=== PATIENT | male | born 1950 | race Caucasian/White ===

== ENCOUNTER 2021-09-15 14:47 | Outpatient (CLI) | payer MEDICARE, SELFPAY | END 2021-09-15 23:59 | disposition home or self-care (01) | PROVIDERS: Referring Provider Family Medicine; Visit Provider Family Medicine | DX: R31.9 Hematuria, unspecified (principal) | CPT/HCPCS: 87086 ==

== ENCOUNTER 2025-06-19 20:30 | Inpatient (IN) | payer MEDICARE, SELFPAY ==
[2025-06-19 20:30] VITALS: BP 200/89; PULSE 88; RESP 18; TEMP 36.8; O2SAT 99; BMI 33.5
--- NOTE | 2025-06-19 20:47 | EKG12_ITS ---
Test Reason : CP Blood Pressure : */* mmHG Vent. Rate : 92 BPM Atrial Rate : 92 BPM P-R Int : 176 ms QRS Dur : 78 ms QT Int : 376 ms P-R-T Axes : 82 69 109 degrees QTcB Int : 464 ms Normal sinus rhythm Marked ST abnormality, possible anterolateral subendocardial injury Abnormal ECG Confirmed by Nick Paige ([id number]), editor index ANAT MURCIA ([id number]) on 06/20/2025 10:35:47 AM Referred By: ER Confirmed By: Nick Paige
--- NOTE | 2025-06-19 20:47 | EDS_ITS ---
HPI History of Present Illness Chief Complaint: Chest Pain Detail of Chief Complaint: Chest pain Informant: patient Narrative Narrative: Patient presents with chest pain intermittently for at least a week. It can last up to 30 minutes at a time. At times he will have discomfort into his arms and biceps and forearms. Pain also will radiate through to his back. He feels somewhat short of breath with it. Does not necessarily seem to be brought on by exertion. He had recent travel to [place] earlier in the month by vehicle which was about 8 hours. No history of PE or DVT. No prior cardiac history. He does have history of hypertension but is on an herbal medicine. [facility] Medical History (Updated 06/19/25 @ 22:[address] Giovanny Ventura, DO) Hypertension Macular degeneration Home Medications Medication Instructions Recorded Last Taken Type aspirin 81 mg capsule 81 mg PO DAILY 06/19/25 Unkn own History Allergy/AdvReac Type Severity Reaction Status Date / Time No Known Allergies Allergy Verified 06/19/25 20:33 Family History no significant family his Surgical History (Updated 06/19/25 @ 20:48 by Saul Etienne) Hx of tonsillectomy Hx of appendectomy ROS ROS ED Review of Systems ROS Unobtainable: other Constitutional Constitutional ED: Reports lethargy; Denies chills, fever(s), sweats or weight loss Eyes Eyes: Denies blurry vision, change in vision or diplopia ENT ENT ED: Denies rhinorrhea or sore throat Cardiovascular Cardiovascular: Reports chest pain; Denies orthopnea or racing heartbeat Respiratory/Chest Respiratory/Chest: Denies cough, dyspnea, dyspnea on exertion, orthopnea or sputum Gastrointestinal Gastrointestinal: Denies abdominal pain, diarrhea, nausea or vomiting Genitourinary Genitourinary ED: Denies dysuria, hematuria or urinary frequency Musculoskeletal Musculoskeletal: Denies arthralgias, back pain, myalgias or neck pain Integumentary Denies abscess, Abrasions or rash Neurologic Neurologic: Denies headache(s) or weakness Psychiatric Psychiatric: Denies anxiety, depression or suicidal thoughts Endocrine Endocrinology: Denies polydipsia, polyphagia or polyuria Hematologic/Lymphatic Hematologic/Lymphatic: Denies easy bleeding, easy bruising or lymphadenopathy Allergic/Immunologic Allergic/Immunologic ED: Denies mouth swelling, tongue swelling or urticaria EXAM Physical Exam Const Vital Signs: 06/19/25 20:30 06/19/25 20:47 06/19/25 20:50 Temperature 98.2 F Temperature Source Oral Pulse Rate 88 Respiratory Rate 18 Respiratory Effort Normal Blood Pressure 200/89 H Blood Pressure Mean 126 Pulse Ox 99 Oxygen Delivery Method Room Air Room Air 06/19/25 20:58 06/19/25 21:30 Temperature Temperature Source Pulse Rate 82 71 Respiratory Rate 16 Respiratory Effort Blood Pressure 176/97 H 159/86 H Blood Pressure Mean 110 Pulse Ox 96 Oxygen Delivery Method Room Air Positive well nourished and well developed General Appearance ED: well developed and NAD HEENT Reports TM's clear and moist mucous membranes normocephalic and atraumatic; Negative for trauma or tenderness Tympanic Membrane ED: Yes TM's clear Eyes PERRL and EOMs intact bilaterally General Eye ED: Negative for pale conjunctiva or scleral icterus Neck no lymphadenopathy, supple and no JVD General: Negative for tenderness Chest Wall inspection of chest normal and palpation of chest normal Chest: Negative for tenderness Resp normal respiratory effort and clear to auscultation bilaterally Effort and Inspection: Negative for respiratory distress or pain with movement Auscultation: Negative for rhonchi, wheezes or diminished lung sounds Cardio regular rate, regular rhythm, S1 normal heart sound, S2 normal heart sound and no murmurs Peripheral Pulses: pulses 2+ throughout GI normal to inspection, nondistended, normoactive bowel sounds, soft to palpation, non-tender, non-distended and no masses Back/Spine no CVA tenderness and no thoracic nor lumbar tenderness Extremity normal to inspection General Extremety ED: Negative for edema General Extremity: Negative for edema Neuro oriented x3, CN's II-XII intact bilaterally, no sensory deficits noted and gait normal Sensorium / Orientation: awake, alert, oriented to person, oriented to place and oriented to time Motor Exam: strength 5/5 throughout and strength abnormal Psych mental status grossly normal Skin no rashes or lesions noted and no wounds MDM MDM MDM Narrative Medical decision making narrative: Patient presents with chest pain ongoing for at least a week or 2. Pain radiates to the back and into the arms at times. Minimal discomfort at this time. EKG obtained arrival showed diffuse ST depression from V2 down to V6 in 1 and aVL. When compared with EKG from 20 years ago this looks very different. Patient received aspirin. CBC with differential obtained showed a white count of 8.6 with hemoglobin 15 and platelet count of 243. Chemistries were unremarkable. BUN was 14 and creatinine 1.55. Troponin came back elevated 139. Patient was started on a heparin drip. 1 view chest x-ray obtained showed no acute disease process. Discussed case with windows laptop technician Dr. Paige who is on- call. Will discuss with hospitalist to evaluate patient for admission. Patient did come in quite hypertensive initially with systolic over 200 but states he has chronic history of whitecoat syndrome and typically at home his blood pressures in the 150s and 140s. After Nitropaste to the chest wall patient's blood pressure 159/86 Lab Data Attestation: I reviewed the patient's lab results. Labs: Laboratory Results - last 24 hr 06/19/25 20:53 WBC 8.6 RBC 5.21 Hgb 15.1 Hct 44.5 MCV 85.4 MCH 29.0 MCHC 33.9 RDW Std Deviation 42.0 RDW Coeff of Mercy 13.5 Plt Count 243 MPV 10.1 Immature Gran % (Auto) 0.300 Neut % (Auto) 54.0 Lymph % (Auto) 35.5 Starr % (Auto) 7.4 Eos % (Auto) 2.1 Baso % (Auto) 0.7 Absolute Neuts (auto) 4.7 Absolute Lymphs (auto) 3.07 Nucleated RBC % 0 Sodium 139 Potassium 4.0 Chloride 104 Carbon Dioxide 23.4 Anion Gap 12 BUN 14 Creatinine 1.55 H Estim Creat Clear Calc 47.82 L Est GFR (MDRD) Non-Af 47 L BUN/Creatinine Ratio 9.0 L Glucose 117 H Calcium 9.5 Troponin T High Sens 139 H* Radiography Diagnostic Testing: Clinical Impression(s) from Imaging Studies Chest X-Ray 06/19/25 21:09 IMPRESSION: No focal consolidation. Mild pulmonary vascular congestion. Bilateral lower thoracic rib fractures not excluded. Reading Location: [facility] EKG Initial EKG: Attestation: I personally reviewed and interpreted this EKG as follows: Comments: Sinus rhythm with rate of [address] depression anterior laterally. Prior EKG tracings: available for review Prior: Changed Discharge Plan Dx/Rx/DC Orders Clinical Impression: Non-ST elevation [place] (NSTEMI), Elevated troponin, Hypertension Disposition Disposition: Acute Care Hospital [facility]
[2025-06-19] MEDS: 0.9% Normal Saline (1000mL) 1,000 ML 150 ML IV (20:55)
[2025-06-19 20:58] VITALS: BP 176/97; PULSE 82
[2025-06-19] MEDS: Nitroglycerin Oint 1 INCH PACKET TD (20:58)
[2025-06-19 21:08] LABS: Hematocrit 44.5 % (40-54); Hemoglobin 15.1 g/dL (13.0-16.5); Immature Granulocytes Count 0.030 X10^3/uL (0.0-0.0); Mean Corp Hgb Conc 33.9 g/dL (32-36); Mean Corpuscular Volume 85.4 fL (80-94); Mean Platelet Vol. 10.1 fl (6.2-12.0); NRBC Flagged by Analyzer 0 % (0-5); Platelet Count 243 K/mm3 (150-450); RBC Distribution Width CV 13.5 % (11.6-14.6); RBC Distribution Width SD 42.0 fl (35.1-43.9); Red Blood Count 5.21 M/mm3 (4.6-6.2); White Blood Count 8.6 K/mm3 (4.4-11.0)
--- NOTE | 2025-06-19 21:09 | RAD_ITS ---
PROCEDURE: CHEST 1 VIEW (PORTABLE) 06/19/2025 REASON FOR EXAM: CHEST PAIN TECHNIQUE: Frontal view of the chest. COMPARISON: none FINDINGS: No focal consolidation. Mild pulmonary vascular congestion. No pleural effusion or pneumothorax. Cardiac silhouette is within normal limits. Bilateral lower thoracic rib fractures not excluded. RAD/Chest 1 View (Portable) IMPRESSION: No focal consolidation. Mild pulmonary vascular congestion. Bilateral lower thoracic rib fractures not excluded. Reading Location: [facility]
--- OUTSIDE RECORDS SUMMARY | 2025-06-19 21:11 | XMS RPT_ITS | CCD ---
Author Organization [facility]format ion [facility] RESHIPPING CLERK [facility] Results Test Name Value Interpretation Reference Range Facil ity Urine Cultureon 09-16-2021 [facility] Culture exhibits no growth. Normal [facility] Comment on above: Performed By: #### M [id number] #### [facility] [address] [place], [id number] Summary Purpose Family History No Family History Records Found Advance Directives No Advanced Directives Records Found Additional Source Comments (unrecognized sect ion and content) No Status Records Found INFORMATION SOURCE (unrecogn ized section and content) DATE CREATED AUTHOR 11/03/2021 [facility] FOR RECORDS PERTAINING TO PATIENTS WHO ARE OR HAVE BEEN ENROLLED IN A CHEMICAL DEPENDENCY/SUBSTANCEABUSE PROGRAM, SOME INFORMATION MAY BE OMITTED. This clinical summary was aggregated from multiple sources. Caution should be exercised in using it in the provision of clinical care. This summary normalizes information from multiple sources, and as a consequence, information in this document may materially change the coding, format and clinical context of patient data. In addition, data may be omitted in some cases. CLINICAL DECISIONS SHOULD BE BASED ON THE PRIMARY CLINICAL RECORDS. [facility] [employer] provides no warranty or guarantee of the accuracy or completeness of information in this document.
[2025-06-19 21:28] LABS: Anion Gap 12 (5-15); BUN 14 mg/dL (4-19); BUN/Creat Ratio 9.0 RATIO (10-20); Calcium,Total 9.5 mg/dL (7.6-11.0); Carbon Dioxide 23.4 mmol/L (21.0-32.0); Chloride 104 mmol/L (98-108); Estimated Creatinine Clearance 47.82 ml/min (50-250); Glucose 117 mg/dL (70-99); Potassium 4.0 mmol/L (3.3-5.1)
[2025-06-19 21:30] VITALS: BP 159/86; PULSE 71; RESP 16; O2SAT 96
[2025-06-19 21:44] LABS: Troponin T High Sensitivity 139 ng/L (<=22)
[2025-06-19 22:00] VITALS: BP 158/84; PULSE 67; RESP 18; TEMP 36.8; O2SAT 97
[2025-06-19 22:06] LABS: D-Dimer Quantitative (DVT/PE) < 0.27 FEU/ug/m (0.27-0.49)
--- NOTE | 2025-06-19 22:07 | PCM.HP.STD ---
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/ PMHx: HTN (White Coat HTN), Macular degeneration, Obesity, CKD stage III unclear subtype or GFR trending who presents to the [facility] ED on 06/19/2025 with history of intermittent chest discomfort ongoing for the last week lasting up to 30 minutes at a time with midsternal discomfort with radiation into bilateral arms and toward his back with mild dyspnea in addition occurring at rest and with exertion with recent history of travel to [place] earlier in the month by vehicle but no specific report of pain to the legs or swelling but given ongoing discomfort prompted ED evaluation. He notes he is on herbal medication for his high blood pressure. He denies any diaphoresis or nausea or emesis. He does state that when his chest discomfort is at its worst it is rated 5 out of 10 in severity and is a dull aching sensation. Workup in the ED included T98.2, heart rate 88, BP initially 289, respiratory rate 18, 99% room air with most recent repeat vitals heart rate 71, BP 159/86, respiratory rate 16, 96% on room air, CBC with WC 8.6, hemoglobin 15.1, platelet 243 without marked shift, D-dimer pending upon request evaluation of patient, BUN/creatinine 14/1.55, GFR 47, glucose 117, troponin 139, chest x-ray with no focal consolidations, mild pulmonary vascular congestion, bilateral lower thoracic rib fractures unable to be excluded, EKG with diffuse ST depression. In the ED patient administered maintenance IV fluids, full-strength aspirin therapy, heparin bolus and drip as well as topical transdermal nitroglycerin. ED physician discussed case with Dr. Paige Radar Engineer. [facility] Medical History Obesity Chronic kidney disease (CKD), stage III (moderate) Hypertension Macular degeneration Home Medications Medication Instructions Recorded Last Taken Type aspirin 81 mg capsule 81 mg PO DAILY 06/19/25 Unknown History Allergy/AdvReac Type Severity Reaction Status Date / Time No Known Allergies Allergy Verified 06/19/25 20:33 Family History (Updated 06/19/25 @ 22:[address] Amelia Watt MD) Mother CAD (coronary artery disease) Heart disease Hypertension Father Hypertension Colon cancer Dx in his 70s. Family History no significant family his Surgical History Hx of tonsillectomy Hx of appendectomy Social History (Updated 06/19/25 @ 22:[address] Amelia Watt MD) household members: spouse Smoking Status: Former smoker how long ago did patient quit smoking: Smoked remotely in high school, short term. alcohol intake: current alcohol intake frequency: holidays/special occasions only substance use type: does not use ROS ROS Narrative Admission Review of Systems: CONSTITUTIONAL: No weight loss, fever, chills, + weakness or fatigue. HEENT: Eyes: No visual loss, blurred vision, double vision or yellow sclerae. Ears, Nose, Throat: No hearing loss, sneezing, congestion, runny nose or sore throat. SKIN: No rash or itching, lesions, wounds. CARDIOVASCULAR:+ Chest pain. No palpitations, edema, orthopnea, syncopal events. RESPIRATORY: + Dyspnea. No cough or sputum, wheezing, hemoptysis. GASTROINTESTINAL: No anorexia, nausea, vomiting or diarrhea, abdominal pain, melena, BRBPR. GENITOURINARY: No dysuria, frequency, urgency or retention. NEUROLOGICAL: No headache, dizziness, syncope, paralysis, ataxia, numbness or tingling in the extremities, focal weakness, change in bowel or bladder control, seizure. MUSCULOSKELETAL: + muscle, back pain, joint pain or stiffness. HEMATOLOGIC: No anemia, bleeding or bruising. LYMPHATICS: No enlarged nodes. No history of splenectomy. PSYCHIATRIC: No history of depression or anxiety. ENDOCRINOLOGIC: No reports of sweating, cold or heat intolerance. No polyuria or polydipsia. ALLERGIES: No history of asthma, hives, eczema or rhinitis. Vital Signs Vital Signs Vital Signs: 06/19/25 20:30 06/19/25 20:47 06/19/25 20:50 Temperature 98.2 F Temperature Source Oral Pulse Rate 88 Respiratory Rate 18 Respiratory Effort Normal Blood Pressure 200/89 H Blood Pressure Mean 126 Pulse Ox 99 Oxygen Delivery Method Room Air Room Air 06/19/25 20:58 06/19/25 21:30 06/19/25 22:00 Temperature Temperature Source Pulse Rate 82 71 67 Respiratory Rate 16 18 Respiratory Effort Blood Pressure 176/97 H 159/86 H 158/84 H Blood Pressure Mean 110 108 Pulse Ox 96 97 Oxygen Delivery Method Room Air Room Air 06/19/25 22:00 Temperature 98.2 F Temperature Source Pulse Rate 67 Respiratory Rate 18 Respiratory Effort Blood Pressure 158/84 H Blood Pressure Mean 108 Pulse Ox 97 Oxygen Delivery Method Weight Weight: 214 lb Body Mass Index (BMI) 33.5 Physical Exam Narrative Physical Examination: General: Awake, alert, oriented x 3 and cooperative, seated upright in the ED bed, notes chest pain currently resolved. Skin: Normal color, normal turgor, no icterus, no cyanosis except occasional abrasion, ecchymoses. HEENT: AT/NC, EOMI, PERRLA, MMM, no carotid bruits or JVD noted. Lungs: CTA bilaterally, moderate effort, mild decrease BL bases, no rales, ronchi or wheezing. Heart: Regular rate and rhythm; no gallop, rub audible. Abdomen: Soft, obese, NTTP, ND, mildly hyperactive BS, no appreciated HSM. Extremities: No cyanosis, no clubbing, no marked peripheral edema noted Neurological: Patient awake, alert, oriented as noted,cognitive function intact; pupils equally reactive to light and accommodation, cranial nerves grossly normal, moving all 4 extremities, no focal deficits, strength mildly to moderately global decrease secondary to acute presentation complaints although he feels improved currently. Psychiatric: Affect appears normal, no acute evidence of depressive or anxiety feelings. Results Lab / Micro Data 06/19/25 20:53 06/19/25 20:53 Labs: Laboratory Results - last 24 hr 06/19/25 20:53: WBC 8.6, RBC 5.21, Hgb 15.1, Hct 44.5, MCV 85.4, MCH 29.0, MCHC 33.9, RDW Std Deviation 42.0, RDW Coeff of Mercy 13.5, Plt Count 243, MPV 10.1, Immature Gran % (Auto) 0.300, Neut % (Auto) 54.0, Lymph % (Auto) 35.5, Walker % (Auto) 7.4, Eos % (Auto) 2.1, Baso % (Auto) 0.7, Absolute Neuts (auto) 4.7, Absolute Lymphs (auto) 3.07, Nucleated RBC % 0, D-Dimer Quant (PE/DVT) < 0.27 L, Sodium 139, Potassium 4.0, Chloride 104, Carbon Dioxide 23.4, Anion Gap 12, BUN 14, Creatinine 1.55 H, Estim Creat Clear Calc 47.82 L, Est GFR (MDRD) Non-Af 47 L, BUN/Creatinine Ratio 9.0 L, Glucose 117 H, Calcium 9.5, Troponin T High Sens 139 H* Imaging Radiology Impression Chest X-Ray 06/19/25 21:09 IMPRESSION: No focal consolidation. Mild pulmonary vascular congestion. Bilateral lower thoracic rib fractures not excluded. Reading Location: [facility] Assessment & Plan Assessment/Plan (1) Non-ST elevation IN (NSTEMI): PLAN: Plan The patient is a 74 y/o M w/ PMHx: HTN (White Coat HTN), Macular degeneration, Obesity, CKD stage III unclear subtype or GFR trending who presents to the [facility] ED on 06/19/2025 with history of intermittent chest discomfort ongoing for the last week lasting up to 30 minutes at a time with radiation into bilateral arms and toward his back with mild dyspnea in addition occurring at rest and with exertion with recent history of travel to [place] earlier in the month by vehicle but no specific report of pain to the legs or swelling but given ongoing discomfort prompted ED evaluation. #1. Chest Pain concerning for acute NSTEMI: EKG in ED w/ sinus rhythm with diffuse ST depression, CXR w/ no acute cardiopulmonary finding. Trop elevated, 139. Will admit to PCU, maintain on a monitored bed, continue serial cardiac enzymes and EKGs. Obtain magnesium level upon admission. Will continue heparin drip. Continue medical management w/ asa, adding low dose BB but defer to Cardiology discretion for change/alteration, adding statin w/ AM FLP. ECHO requested. Cardiology consulted with plan for cardiac catheterization. Will judiciously hydrate in preparation for cardiac catheterization. D-dimer is pending upon requested evaluation of patient and unfortunately if this is elevated would need to pursue CTPA to assure that ongoing history of chest discomfort is not because of pulmonary embolism. ASA, NG placed to be continued. #2. Hypertension, uncontrolled, questionable emergency given #1: Patient not on any regimen, BP notably elevated upon initial presentation, troponin elevated 139 with NSTEMI presentation concerns as noted however D-dimer is pending upon presentation thus certainly given history if elevated would need to pursue CTPA also and rule out PE for underlying etiology as well. BP currently improved in the ED, will continue topical nitroglycerin, will add low-dose beta-matt therapy, as needed IV hydralazine. #3. Chronic Kidney Disease Stage III, unclear subtype or GFR trending: Admission BUN/Cr 14/1.55, GFR 47, baseline renal function primarily 1.3-1.5, repeat BMP in AM. #4. Macular degeneration: Maintain on fall precautions, encouraged continued follow-up outpatient with ophthalmology as previously arranged. #5. Obesity: Weight loss and lifestyle changes encouraged. #6. DVT prophylaxis: Continue heparin drip. #7. CODE status: Patient NATALIA is his who is present and living will is currently in place. Discussed CODE status at length including difference between FULL code, DNR-CCA and DNR-CC status. Following discussions about the differences in these status, requested Full Code status. Charges/Coding Visit Charges Inpatient E&M: 45569 Init Hosp D/C Safety Score for UGIB Assessment Valentino-Blatchford Bleeding Score (GBS): Stratifies upper GI bleeding patients who are "low-risk" and candidates for outpatient management. Sex: Male Hemoglobin, BUN, Recent Vital Signs: Hgb 15.1 g/dL (13.0-16.5) 06/19/25 20:53 BUN 14 mg/dL (4-19) 06/19/25 20:53 Pulse Rate 67 Blood Pressure 158/84 Total Risk Score: 3 Score Interpretation: Score of 0: A GBS of 0 is a “Low Risk” GI bleed, and is highly sensitive (99.6% in a 2007 retrospective study) for predicting which patients did not require any “medical intervention”: blood transfusion, endoscopy, or surgery. This was confirmed in a 2009 Lancet study where patients with a score of 0 were actually discharged and had no GI bleeding mortality at 6 month followup Score above 0: A GBS greater than zero suggests a “High Risk” GI bleed that is likely to require “medical intervention”: transfusion, endoscopy, or surgery. A higher GBS also correlated with a higher likelihood of needing intervention Scores >/= 6 are associated with >50% risk of needing intervention D/C Safety Score for LGIB Assessment Assessment Tool: Readmission and adverse event risk in patients with acute lower GI bleeding. Age, in years: >/= 70 Sex: Male Hemoglobin and Recent Vital Signs: Hgb 15.1 g/dL (13.0-16.5) 06/19/25 20:53 Pulse Rate 67 06/19/25 22:00 Blood Pressure 158/84 06/19/25 22:00 Probability of safe discharge: 98% Total Risk Score: 3 Score Interpretation: Probability Percentage of safe discharge (absence of rebleeding, blood transfusion, therapeutic intervention, 28 day readmission, or ) Score of 8 or below: Consider discharge, with appropriate precautions. Score of 9 or above: Discharge NOT recommended. Consider admission with further workup and resuscitation as necessary.
[2025-06-19] MEDS: Heparin Injection (Vial) 5,000 UNIT/ML VIAL 8000 UNIT IV (22:13)
[2025-06-19] MEDS: HEPARIN/D5w 25,000 UNITS 25,000 UNITS/250 ML IV.SOLN. 14.6 UNITS CONT INF (22:15)
[2025-06-19 22:25] LABS: Prothrombin Time (Protime)PT. 12.9 SECONDS (11.7-14.9)
[2025-06-19 22:26] LABS: Partial Thromboplast Time 26.9 Seconds (24.1-36.2)
--- OUTSIDE RECORDS SUMMARY | 2025-06-19 22:39 | XMS RPT_ITS | CCD ---
Author Organization [facility]format ion Partnership DENTAL THERAPIST [facility] Results Test Name Value Interpretation Reference Range Facil ity Urine Cultureon 09-16-2021 [facility] Culture exhibits no growth. Normal [facility] Comment on above: Performed By: #### M [id number] #### [facility] [address] [place], [place], [id number] Summary Purpose Family History No Family History Records Found Advance Directives No Advanced Directives Records Found Additional Source Comments (unrecognized sect ion and content) No Status Records Found INFORMATION SOURCE (unrecogn ized section and content) DATE CREATED AUTHOR 11/03/2021 [facility] FOR RECORDS PERTAINING TO PATIENTS WHO [...] BE BASED ON THE PRIMARY CLINICAL RECORDS. [facility] provides no warranty or guarantee of the accuracy or completeness of information in this document.
[2025-06-19 23:07] VITALS: PULSE 67
--- NOTE | 2025-06-19 23:09 | EKG12_ITS ---
Test Reason : CP ADMIT/HEART CATH IN AM Blood Pressure : */* mmHG Vent. Rate : 65 BPM Atrial Rate : 65 BPM P-R Int : 196 ms QRS Dur : 76 ms QT Int : 414 ms P-R-T Axes : 73 31 81 degrees QTcB Int : 430 ms Normal sinus rhythm Cannot rule out Inferior infarct , age undetermined Abnormal ECG When compared with ECG of 19-Jun-2025 20:40, MANUAL COMPARISON REQUIRED DATA IS UNCONFIRMED Confirmed by Nick Paige ([id number]), film or videotape editor ANAT MURCIA ([id number]) on 06/20/2025 8:36:18 AM Referred By: Confirmed By: Nick Paige
[2025-06-19 23:10] LABS: Magnesium 2.0 mg/dL (1.5-2.2)
[2025-06-19 23:12] LABS: Troponin T High Sens 2 HR 192 ng/L (<=22)
[2025-06-19 23:22] VITALS: BP 158/81; PULSE 73; RESP 16; TEMP 36.6; O2SAT 96
[2025-06-19] MEDS: 0.9% Normal Saline (1000mL) 1,000 ML 100 ML IV (23:25)
[2025-06-19 23:26] VITALS: BMI 30.7
[2025-06-20] VITALS (16 sets, daily range): BP systolic 141–186; BP diastolic 64–91; PULSE 55–70; RESP 14–18; TEMP 2.5–37.1; O2SAT 93–100; BMI 30.7
[2025-06-20] MEDS: HEPARIN/D5w 25,000 UNITS 25,000 UNITS/250 ML IV.SOLN. 11.6 UNITS CONT INF (00:07)
[2025-06-20] MEDS: Nitroglycerin Oint 1 INCH PACKET 0.5 INCH TD ×5 (00:08→23:54)
[2025-06-20 02:27] LABS: Troponin T High Sens 4 HR 227 ng/L (<=22)
[2025-06-20 04:42] LABS: Hematocrit 41.3 % (40-54); Hemoglobin 14.0 g/dL (13.0-16.5); Immature Granulocytes Count 0.040 X10^3/uL (0.0-0.0); Mean Corp Hgb Conc 33.9 g/dL (32-36); Mean Corpuscular Volume 86.0 fL (80-94); Mean Platelet Vol. 10.0 fl (6.2-12.0); NRBC Flagged by Analyzer 0 % (0-5); Platelet Count 211 K/mm3 (150-450); RBC Distribution Width CV 13.6 % (11.6-14.6); RBC Distribution Width SD 42.5 fl (35.1-43.9); Red Blood Count 4.80 M/mm3 (4.6-6.2); White Blood Count 9.5 K/mm3 (4.4-11.0)
[2025-06-20 04:49] LABS: Partial Thromboplast Time 88.2 Seconds (24.1-36.2)
[2025-06-20] MEDS: 0.9% Saline Lock 10 ML Syringe IV ×2 (05:08→21:40)
--- NOTE | 2025-06-20 05:55 | ECHOD_ITS ---
Reason For Study Reason For Study: NSTEMI Procedure This was a 2D Doppler, Color Flow transthoracic echocardiogram. Exam performed portable in patient room. Left Ventricle Normal size and thickness. Moderate posterior and inferior hypokinesis. Estimated LVEF 55%. Stage I diastolic dysfunction. Right Ventricle Normal right ventricle. Atria The left and right atria are normal. Mitral Valve Mild (1+) mitral valve insufficiency. Tricuspid Valve Normal tricuspid valve. Aortic Valve Trisinus/trileaflet aortic valve. Trivial aortic valve insufficiency. Pulmonic Valve Trivial pulmonic valve insufficiency. Great Vessels Normal sized aortic root. Pericardium/Pleural No pericardial effusion. MMode/2D Measurements & Calculations LVIDd: 4.2 cm IVSd: 1.1 cm LVOT diam: 2.1 cm LVIDs: 2.8 cm LVPWd: 1.0 cm LVOT area: 3.5 cm2 RVDd: 3.5 cm FS: 34.3 % asc Aorta Diam: 3.6 cm LAV(MOD-bp): 37.2 ml LVAd ap4: 24.7 cm2 LAV(MOD-bp) Indexed: 18.6 ml/m2 LVLd ap4: 8.0 cm LAV(MOD-sp2): 37.1 ml EDV(MOD-sp4): 63.8 ml LAV(MOD-sp4): 33.3 ml EDV(sp4-el): 64.2 ml LVAs ap4: 15.2 cm2 LVLs ap4: 6.7 cm ESV(MOD-sp4): 29.1 ml ESV(sp4-el): 29.3 ml EF(MOD-sp4): 54.4 % EF(sp4-el): 54.3 % LVAd ap2: 23.7 cm2 SV(MOD-sp4): 34.7 ml SV(MOD-sp2): 33.2 ml LVLd ap2: 7.6 cm SI(MOD-sp4): 17.3 ml/m2 SI(MOD-sp2): 16.6 ml/m2 EDV(MOD-sp2): 61.9 ml EDV(sp2-el): 62.2 ml LVAs ap2: 14.8 cm2 LVLs ap2: 6.7 cm ESV(MOD-sp2): 28.7 ml ESV(sp2-el): 27.8 ml EF(MOD-sp2): 53.6 % SV(sp4-el): 34.9 ml Ao sinus diam: 3.5 cm LA A4 area: 14.8 cm2 LA dimension(2D): 3.7 cm RA A4 area: 12.7 cm2 TAPSE: 2.0 cm Time Measurements MV dec time: 0.24 sec Doppler Measurements & Calculations MV E max sergey: 52.0 cm/sec Lat Peak E' Sergey: 11.7 cm/sec Med Peak E' Sergey: 7.3 cm/sec MV A max sergey: 83.2 cm/sec E/E' lat: 4.4 E/E' med: 7.2 MV E/A: 0.63 Ao V2 max: 107.7 cm/sec LV V1 max: 93.2 cm/sec MV dec slope: 221.2 cm/sec2 Ao max P.6 mmHg LV V1 max P.5 mmHg Ao V2 mean: 71.8 cm/sec LV V1 mean P.1 mmHg Ao mean P.4 mmHg LV V1 mean: 68.4 cm/sec Ao V2 VTI: 22.9 cm LV V1 VTI: 22.1 cm AV (velocity ratio): 0.96 JAYSHREE(I,D): 3.4 cm2 JAYSHREE(V,D): 3.1 cm2 SV(LVOT): 78.1 ml PA V2 max: 104.7 cm/sec ECHO/Echo Complete Interpretation Summary Moderate posterior and inferior hypokinesis. Estimated LVEF 55%. Stage I diasto lic dysfunction. Ordering Physician: White, Amelia L Referring Physician: Clem Stanley MD Performed By: Mae Arrieta RDCS
[2025-06-20 06:21] LABS: AST(SGOT) 48 U/L (<=37); Alanine Aminotransfer ALT/SGPT 37 U/L (<=46); Albumin, Serum 3.9 g/dL (3.4-4.8); Alkaline Phosphatase 45 U/L (40-129); Anion Gap 13 (5-15); BUN 12 mg/dL (4-19); BUN/Creat Ratio 8.7 RATIO (10-20); Calcium,Total 8.9 mg/dL (7.6-11.0); Carbon Dioxide 22.1 mmol/L (21.0-32.0); Chloride 105 mmol/L (98-108); Cholesterol 206 mg/dL (<=200); Estimated Creatinine Clearance 50.06 ml/min (50-250); Globulin 2.8 g/dL (2.2-4.2); Glucose 114 mg/dL (70-99); Low Density Lipoprotein Calc. 94 mg/dL; Potassium 4.0 mmol/L (3.3-5.1); Triglycerides 452 mg/dL; Very Low Density Lipoprotein 90 mg/dL (5-40); cholesterol:hdl ratio screen 5.63
--- NOTE | 2025-06-20 07:54 | CON.PCM.CA_ITS ---
Assessment & Plan Assessment/Plan (1) Non-ST elevation [place] (NSTEMI): PLAN: Patient's accelerating chest symptoms, elevated enzymes, risk factor profile, and ECG that evolved ST segment changes are highly suggestive of an acute coronary syndrome. I would recommend the patient undergo a left heart catheterization. The procedure risk/benefit and alternatives were explained to the patient in detail he voiced understanding and agrees to proceed. This will be scheduled for later today. I also went over the potential outcomes of the catheterization including stenting and/or other revascularization as well as medical therapy. (2) Hypertension: QUALIFIERS: Hypertension type: primary hypertension Qualified Code(s): I10 - Essential (primary) hypertension PLAN: Historically the patient has treated his blood pressure with herbal supplements. His blood pressure upon arrival in the emergency department was 200 systolic. He is now down to 152. He is currently on carvedilol 3.125 mg twice daily and we will add lisinopril 10 mg twice daily due to his hyperglycemia and mild renal insufficiency for renal protection. The patient would also be a candidate for potential Farxiga therapy for renal protection. I will defer this to the primary service. (3) Chronic kidney disease (CKD), stage III (moderate): QUALIFIERS: Chronic kidney disease stage 3 subtype: stage 3a (GFR 45-59) Qualified Code(s): N18.31 - Chronic kidney disease, stage 3a PLAN: Patient's BUN and creatinine was 12/1.42 today. Chronically he is around 1.3–1.5 for his creatinine. This gives him a GFR of 53. I would recommend considering adding Farxiga given his elevated fasting blood sugar, hypertension, and chronic renal insufficiency. Will defer to the primary service for long-term management. (4) Hyperlipidemia: QUALIFIERS: Hyperlipidemia type: mixed hyperlipidemia Qualified Code(s): E78.2 - Mixed hyperlipidemia PLAN: Patient's lipids showed a total cholesterol of 206 triglycerides of 452, LDL of 94, and HDL of 37. Given the patient's presentation consistent with an acute coronary syndrome and his fasting lipid profile along with strong family history of coronary disease I recommend he be treated with intensive statin therapy. He has been started on atorvastatin 40 mg daily. His labs should be reevaluated fasting lipids and liver functions in 6 weeks. He did have a minimal elevation of his AST to 48. (5) Fasting hyperglycemia: PLAN: Fasting blood sugars at 114. The patient is obese with truncal obesity. Hemoglobin A1c should be checked and aggressive therapy instituted as tolerated. PLAN: Plan 1. Will add lisinopril 10 mg twice daily to the patient's medical regimen. 2. Continue Coreg 3.125 mg twice daily and titrate to blood pressure and heart rate response. 3. Recommend the patient undergo a left heart catheterization this morning. 4. Dr. Hurtado to perform the cath. 5. Further recommendations pending the outcome of the catheterization. HPI Consult Data Date of Consult: 06/20/25 HPI Narrative Reason for Consultation: Chest pain with elevated enzymes. HPI Narrative: CARLI LOWE, is a 74 M who presents with about a 1 week history of some dyspnea on exertion and upper back discomfort that resolves with rest. It could occur with activity also at rest over the last 24 hours. Prior to admission the patient was brought to the hospital because of the chest discomfort and upper back discomfort radiating to both biceps as an aching sensation. On initial presentation in the ER the patient's blood pressure was 200 systolic. It is slowly come down to around to 150 systolic. ECG in the emergency room showed normal sinus rhythm at 92 bpm there was diffuse ST segment depression in V3 through V6 in 1 and aVL. The subsequent ECG when the patient was pain-free showed resolved ST segment changes and what is a possible old inferior wall infarct. The patient does not have any prior history of cardiac event. He does have a family history of coronary disease, he is hyperlipidemic, hypertensive, he is a remote smoker quit smoking 50 years ago. His fasting blood sugars are elevated in the hospital but he has no prior history of diabetes. The patient does have truncal obesity. Currently the patient is pain-free his enzymes were positive peaking at 227 on the 4-hour troponin. Currently the patient is pain-free resting comfortably in recumbent position in bed. 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 The patient has no known allergies he is not aware that he is ever been exposed to iodine contrast. [facility] Medical History (Updated 06/20/25 @ 08:[address] Nick Paige MD) Obesity Chronic kidney disease (CKD), stage III (moderate) Hypertension Macular degeneration Home Medications Medication Instructions Recorded Last Taken Type aspirin 81 mg capsule 81 mg PO DAILY 06/19/25 Unkn own History Allergy/AdvReac Type Severity Reaction Status Date / Time No Known Allergies Allergy Verified 06/19/25 20:33 Family History Mother CAD (coronary artery disease) Heart disease Hypertension Father Hypertension Colon cancer Dx in his 70s. Family History no significant family his Surgical History Hx of tonsillectomy Hx of appendectomy Social History household members: spouse Smoking Status: Former smoker how long ago did patient quit smoking: Smoked remotely in high school, short term. alcohol intake: current alcohol intake frequency: holidays/special occasions only substance use type: does not use ROS Constitutional Constitutional: Reports as per HPI Eyes Eyes: Reports as per HPI ENT HEENT: Reports systems reviewed and no addt'l complaints, except as documented Cardiovascular Cardiovascular: Reports as per HPI Respiratory/Chest Respiratory/Chest: Reports as per HPI Gastrointestinal Gastrointestinal: Reports systems reviewed and no addt'l complaints, except as documented Genitourinary Genitourinary: Reports as per HPI Musculoskeletal Musculoskeletal: Reports systems reviewed and no addt'l complaints, except as documented Integumentary Integumentary: Reports systems reviewed and no addt'l complaints, except as documented Neurologic Neurologic: Reports systems reviewed and no addt'l complaints, except as documented Psychiatric Psychiatric: Reports systems reviewed and no addt'l complaints, except as documented Endocrine Endocrinology: Reports as per HPI Hematologic/Lymphatic Hematologic/Lymphatic: Reports systems reviewed and no addt'l complaints, except as documented Allergic/Immunologic Allergic/Immunologic: Reports as per HPI Physical Exam Const alert and oriented x3 HEENT normocephalic Eyes EOMs intact bilaterally Neck no JVD and no carotid bruits Chest inspection of chest normal Resp normal respiratory effort Auscultation: crackles bilateral base Cardio Rate: regular rate Rhythm: regular rhythm Heart Sounds: S1 normal, S2 normal and normal, physiologic split S2; Negative for click, gallop or murmur Peripheral Pulses: radial pulses present bilateral 2+ and posterior tibial pulses present bilateral 2+ GI non-tender GI Narrative: Protuberant Extremity no pedal edema Neuro Neuro Narrative: Alert and oriented x 3 Psych mental status grossly normal Charges/Coding Visit Charges Inpatient E&M: 75535 Init Hosp L3 Objective Data Vital Signs: Vital Signs Temp Pulse Resp BP Pulse Ox O2 Del Method 97.8 F 69 15 152/79 H 97 Room Air 06/20/25 05:03 06/20/25 05:03 06/20/25 05:03 06/20/25 05:03 06/20/25 05:03 06/20/25 05:03 Oxygen Delivery Method Room Air Weight: 196 lb 3.382 oz Body Mass Index (BMI) 30.7 Intake & Output: Intake and Output for Last 24 Hours 06/18/25 06/19/25 06/20/25 23:59 23:59 23:59 Intake Total 305 / 305 83.90 / 83.90 Balance 305 / 305 83.90 / 83.90 Lab / Micro Data Attestation: I reviewed the patient's lab results. 06/20/25 04:22 06/20/25 04:22 Labs: Laboratory Results - last 24 hr 06/19/25 20:53: WBC 8.6, RBC 5.21, Hgb 15.1, Hct 44.5, MCV 85.4, MCH 29.0, MCHC 33.9, RDW Std Deviation 42.0, RDW Coeff of [place]cy 13.5, Plt Count 243, MPV 10.1, Immature Gran % (Auto) 0.300, Neut % (Auto) 54.0, Lymph % (Auto) 35.5, Cole % (Auto) 7.4, Eos % (Auto) 2.1, Baso % (Auto) 0.7, Absolute Neuts (auto) 4.7, Absolute Lymphs (auto) 3.07, Nucleated RBC % 0, PT 12.9, INR 1.0, APTT 26.9, D- Dimer Quant (PE/DVT) < 0.27 L, Sodium 139, Potassium 4.0, Chloride 104, Carbon Dioxide 23.4, Anion Gap 12, BUN 14, Creatinine 1.55 H, Estim Creat Clear Calc 47.82 L, Est GFR (MDRD) Non-Af 47 L, BUN/Creatinine Ratio 9.0 L, Glucose 117 H, Calcium 9.5, Troponin T High Sens 139 H* 06/19/25 22:49: Magnesium 2.0, Troponin T Hi Sens 2 Hr 192 H* 06/20/25 00:55: Troponin T Hi Sens 4Hr 227 H* 06/20/25 04:22: WBC 9.5, RBC 4.80, Hgb 14.0, Hct 41.3, MCV 86.0, MCH 29.2, MCHC 33.9, RDW Std Deviation 42.5, RDW Coeff of [place]cy 13.6, Plt Count 211, MPV 10.0, Immature Gran % (Auto) 0.400, Neut % (Auto) 50.4, Lymph % (Auto) 36.9, Cole % (Auto) 8.3, Eos % (Auto) 2.9, Baso % (Auto) 1.1 H, Absolute Neuts (auto) 4.8, Absolute Lymphs (auto) 3.51, Nucleated RBC % 0, APTT 88.2 H, Sodium 140, Potassium 4.0, Chloride 105, Carbon Dioxide 22.1, Anion Gap 13, BUN 12, C reatinine 1.42 H, Estim Creat Clear Calc 50.06, Est GFR (MDRD) Non-Af 53 L, B UN/Creatinine Ratio 8.7 L, Glucose 114 H, Calcium 8.9, Total Bilirubin 0.49, AST 48 H, ALT 37, Alkaline Phosphatase 45, Total Protein 6.7, Albumin 3.9, Globulin 2.8, Albumin/Globulin Ratio 1.4, Triglycerides 452 H, Cholesterol 206 H, LDL Cholesterol, Calc 94, VLDL Cholesterol 90 H, HDL Cholesterol 37 L, Cholesterol/HDL Ratio 5.63 Rhythm Strip Rhythm Strip: Sinus Rhythm Rate: 69 Cardiology Labs/Tests 06/19/25 20:53: WBC 8.6, RBC 5.21, Hgb 15.1, Hct 44.5, MCV 85.4, MCH 29.0, MCHC 33.9, Plt Count 243, MPV 10.1, Immature Gran % (Auto) 0.300, Neut % (Auto) 54.0, Lymph % (Auto) 35.5, Cole % (Auto) 7.4, Eos % (Auto) 2.1, Baso % (Auto) 0.7, Absolute Neuts (auto) 4.7, Nucleated RBC % 0, PT 12.9, INR 1.0, APTT 26.9, D- Dimer Quant (PE/DVT) < 0.27 L, Sodium 139, Potassium 4.0, Chloride 104, Carbon Dioxide 23.4, Anion Gap 12, BUN 14, Creatinine 1.55 H, Est GFR (MDRD) Non-Af 47 L, BUN/Creatinine Ratio 9.0 L, Glucose 117 H, Calcium 9.5 06/19/25 22:49: Magnesium 2.0 06/20/25 04:22: WBC 9.5, RBC 4.80, Hgb 14.0, Hct 41.3, MCV 86.0, MCH 29.2, MCHC 33.9, Plt Count 211, MPV 10.0, Immature Gran % (Auto) 0.400, Neut % (Auto) 50.4, Lymph % (Auto) 36.9, Cole % (Auto) 8.3, Eos % (Auto) 2.9, Baso % (Auto) 1.1 H, Absolute Neuts (auto) 4.8, Nucleated RBC % 0, APTT 88.2 H, Sodium 140, Potassium 4.0, Chloride 105, Carbon Dioxide 22.1, Anion Gap 13, BUN 12, Creatinine 1.42 H, Est GFR (MDRD) Non-Af 53 L, BUN/Creatinine Ratio 8.7 L, Glucose 114 H, Calcium 8.9, Total Bilirubin 0.49, Triglycerides 452 H, Cholesterol 206 H, VLDL Cholesterol 90 H, HDL Cholesterol 37 L, Cholesterol/HDL Ratio 5.63 Rhythm: EKG: ECHO: Stress Test: Cardiac Cath: PCI: CT Surgery: Holter monitor: EPS: PPM: CXR: Chest CT Scan: Radiography Diagnostic Testing: Radiology Impression Chest X-Ray 06/19/25 21:09 IMPRESSION: No focal consolidation. Mild pulmonary vascular congestion. Bilateral lower thoracic rib fractures not excluded. Reading Location: [facility] AVINASH Risk Score for UA/STEMI Assesmment (YES = 1) Risk Stratification Applicable: Yes Age > or = 65: Yes > or = 3 CAD risk factors (HTN, Hypercholesterolemia, Diabetes, family hx, current smoker): Yes Known CAD (Stenosis > or = 50%): No ASA used in past 7 days: Yes Severe angina (> or = 2 episodes in 24 hrs): Yes EKG ST change > or = 0.5mm: Yes Positive cardiac markers: Yes Score AVINASH Risk Score of mortality/ recurrent ischemic event over the next 14 days: 6- 7 = 40.9% - HIGH RISK
--- NOTE | 2025-06-20 09:02 | PCM.PN.HOSP ---
Subjective Subjective Chest pain resolved however his troponins did climb to 227 Objective Data Objective Data Vital Signs: Vital Signs Temp Pulse Resp BP Pulse Ox O2 Del Method 97.7 F L 66 18 157/78 H 93 Room Air 06/20/25 07:58 06/20/25 07:58 06/20/25 07:58 06/20/25 07:58 06/20/25 07:58 06/20/25 07:58 Oxygen Delivery Method Room Air Weight: 196 lb 3.382 oz Body Mass Index (BMI) 30.7 Intake & Output: Intake and Output for Last 24 Hours 06/19/25 06/20/25 06/21/25 03:59 03:59 03:59 Intake Total 332.25 / 332.25 56.65 / 56.65 Balance 332.25 / 332.25 56.65 / 56.65 Lab / Micro Data 06/20/25 04:22 06/20/25 04:22 Labs: Laboratory Results - last 24 hr 06/19/25 20:53: WBC 8.6, RBC 5.21, Hgb 15.1, Hct 44.5, MCV 85.4, MCH 29.0, MCHC 33.9, RDW Std Deviation 42.0, RDW Coeff of Mercy 13.5, Plt Count 243, MPV 10.1, Immature Gran % (Auto) 0.300, Neut % (Auto) 54.0, Lymph % (Auto) 35.5, [place] % (Auto) 7.4, Eos % (Auto) 2.1, Baso % (Auto) 0.7, Absolute Neuts (auto) 4.7, Absolute Lymphs (auto) 3.07, Nucleated RBC % 0, PT 12.9, INR 1.0, APTT 26.9, D-Dimer Quant (PE/DVT) < 0.27 L, Sodium 139, Potassium 4.0, Chloride 104, Carbon Dioxide 23.4, Anion Gap 12, BUN 14, Creatinine 1.55 H, Estim Creat Clear Calc 47.82 L, Est GFR (MDRD) Non-Af 47 L, BUN/Creatinine Ratio 9.0 L, Glucose 117 H, Calcium 9.5, Troponin T High Sens 139 H* 06/19/25 22:49: Magnesium 2.0, Troponin T Hi Sens 2 Hr 192 H* 06/20/25 00:55: Troponin T Hi Sens 4Hr 227 H* 06/20/25 04:22: WBC 9.5, RBC 4.80, Hgb 14.0, Hct 41.3, MCV 86.0, MCH 29.2, MCHC 33.9, RDW Std Deviation 42.5, RDW Coeff of Mercy 13.6, Plt Count 211, MPV 10.0, Immature Gran % (Auto) 0.400, Neut % (Auto) 50.4, Lymph % (Auto) 36.9, [place] % (Auto) 8.3, Eos % (Auto) 2.9, Baso % (Auto) 1.1 H, Absolute Neuts (auto) 4.8, Absolute Lymphs (auto) 3.51, Nucleated RBC % 0, APTT 88.2 H, Sodium 140, Potassium 4.0, Chloride 105, Carbon Dioxide 22.1, Anion Gap 13, BUN 12, Creatinine 1.42 H, Estim Creat Clear Calc 50.06, Est GFR (MDRD) Non-Af 53 L, BUN/Creatinine Ratio 8.7 L, Glucose 114 H, Calcium 8.9, Total Bilirubin 0.49, AST 48 H, ALT 37, Alkaline Phosphatase 45, Total Protein 6.7, Albumin 3.9, Globulin 2.8, Albumin/Globulin Ratio 1.4, Triglycerides 452 H, Cholesterol 206 H, LDL Cholesterol, Calc 94, VLDL Cholesterol 90 H, HDL Cholesterol 37 L, Cholesterol/HDL Ratio 5.63 Radiography Diagnostic Testing: Radiology Impression Chest X-Ray 06/19/25 21:09 IMPRESSION: No focal consolidation. Mild pulmonary vascular congestion. Bilateral lower thoracic rib fractures not excluded. Reading Location: [facility] Rhythm Strip Rhythm Strip: Sinus Rhythm Rate: 69 Physical Exam Narrative General: Alert, Oriented x3, Cooperative, No apparent distress HEENT: Atraumatic, PERRLA, EOMI, Normocephalic Oral: Moist Mucosa Neck: Supple, No JVD Lungs: Diminished, Normal air movement, No rhonchi, No wheeze, No rales Cardiovascular: Regular rate, Regular Rhythm, Normal S1, Normal S2, No murmurs Abdomen: Soft, Non Tender, Non-Distended, No Hepato-splenomegaly Extremities: No edema, Capillary Refill Less than 3 Seconds Skin: No rashes, No breakdown Musculoskeletal: No Tenderness to Palpation of Joints or Extremities Neurological: No focal neurological deficits, moves all extremities Psych/Mental Status: Normal Affect, Appropriate Assessment & Plan Assessment/Plan (1) Non-ST elevation [place] (NSTEMI): PLAN: Plan 1. Non-STEMI/essential HTN – Appreciate cardiology's assistance – Plan for heart cath today, troponins peaked to 227 – Can continue with blood pressure medications – Continue with Lipitor 2. Macular degeneration – Follows as an outpatient DVT: Heparin drip Charges/Coding Visit Charges Inpatient E&M: 98115 Subs Hosp L2
--- NOTE | 2025-06-20 09:45 | CASEMGMT ---
RN CM Face to Face with patient for initial transition planning/care coordination assessment. RN CM introduced self and role at [facility]. Patient lying in bed, alert and oriented, at bedside. Patient willing to participate in assessment and is able to answer all questions appropriately. Care providers, pharmacy, and demographics verified. Strata: 2 PCP: Lizeth Specialists: none Preferred Pharmacy: [facility] Insurance: uTaP [facility] Prescription Benefit: yes Living Will/HPOA: yes, Evita Abdullahi LNOK: Living Arrangements: Patient lives with in a 2 story home. Patient is independent and able to ambulate stairs. Transportation: self, DME/HHC: Patient has raised toilet at home. No previous HHC or SNF. Patient wishes to discharge home, denies need for home health at this time. Patient states he has no further needs or concerns at this time. CM to follow for discharge planning needs that may arise. Disposition Plan: Patient to discharge home with family support and follow-up plans in place. Tiffanie LINDA, RN, CM
[2025-06-20] MEDS: 0.9% Normal Saline (1000mL) 1,000 ML 15 ML IV (10:53)
[2025-06-20 11:13] LABS: Partial Thromboplast Time 37.1 Seconds (24.1-36.2)
[2025-06-20 14:54] LABS: ACT Activated Clotting Time 179 sec (74-137)
--- NOTE | 2025-06-20 15:00 | CRPH1.INST_ITS ---
General Education Discussed with Patient CAD and cardiac anatomy and function:: Patient communicates acknowledgment and Family communicates acknowledgment Explanation of diagnoses and procedures:: Patient communicates acknowledgment and Family communicates acknowledgment Sign/Symptoms of DC:: Patient communicates acknowledgment and Family communicates acknowledgment Antiplatelet therapy: Patient communicates acknowledgment and Family communicates acknowledgment Proper use of NTG-SL: Patient communicates acknowledgment and Family communicates acknowledgment Emergency procedures and activation of EMS: Patient communicates acknowledgment and Family communicates acknowledgment Compliance of all prescribed medications: Patient communicates acknowledgment and Family communicates acknowledgment Dyslipidemia Risk Factors Patient Dyslipidemia Risk Factors Are:: Total Cholesterol, Triglycerides, HDL and LDL Recommendations Recommendations Include:: Lipid profile provided Response Code Dyslipidemia Response Code:: Patient communicates acknowledgment and Family communicates acknowledgment Overweight/Obesity Risk Factors Patient Overweight/Obesity Risk Factors Are:: Obesity - > or = 30 Recommendations Recommendations Include:: Weight loss of 5-10%, Reduced calorie diet and Exer cise 5-7 times/week Response Code Overweight/Obesity:: Patient communicates acknowledgment and Family communicates acknowledgment Hypertension Recommendations Recommendations Include:: Maintain BP <130/85 and Decrease/maintain normal body weight Response Code Hypertension:: Patient communicates acknowledgment and Family communicates acknowledgment Sedentary Risk Factors Patient Sedentary Risk Factors Are:: Lack of regular exercise Recommendations Recommendations Include:: Aerobic exercise 5-7 times/week for 20-30 minutes continuously, Benefits of regular exercise, Discussed home walking program and Monitored Outpatient Cardiac Rehab Response Code Sedentary Response Code:: Patient communicates acknowledgment and Family communicates acknowledgment Stress Risk Factors Patient Stress Risk Factors Are:: Patient denies stress as a risk factor Recommendations Recommendations Include:: Identification of stressors, and assessment of coping skills and Stress management techniques Response Code Stress Response Code:: Patient communicates acknowledgment and Family communicates acknowledgment
--- NOTE | 2025-06-20 15:00 | CRPHASE1_ITS ---
Patient Communication Patient Information PHII Cardiac Rehab Discussed with Patient:: Yes Guide to Cardiac Rehab Given to Patient:: Yes Cardiac Rehab Facility Choice List Given to Patient:: Yes Communication to Cardiac Rehab Choice Program [facility] CR PHII:: Communication Given to CR Digitizer Operator:: Jane Hurtado Phase II Cardiac Rehab:: Yes Sessions:: 36 sessions - 3 days/wk, 12 weeks Cardiac Rehabilitation Info Program Information Cardiac Rehabilitation Program Information: Cardiac Rehab The cardiac rehab team at [facility] consists of highly skilled exercise physiologists, nurses, respiratory therapists and physicians working together with you. Our purpose is to help you have a full recovery and achieve the goals you set for yourself. Over the years many of our patients have returned to activities they assumed they would never do again! We can help restore your confidence and motivation to make lifestyle changes that can have a significant impact on your health and quality of life! We can help answer questions and concerns you may have about exercise, lifestyle, medications, diet, stress and anxiety which are common following a hospitalization. WE monitor ECG and vital signs during exercise and discuss your progress with you and report to your physician(s). Cardiac Rehab is proven to help reduce readmissions, improve functional capacity and lower recurrence of problems with your heart. Our Cardiac Rehab program is Certified by the [place] [employer]monary [employer] (AACVPR) and Accredited by the [place] [employer] through our [facility]. You can contact us at . We invite you to call us with your questions or to get started in our program. If you have other questions or concerns be sure to ask your physician/provider during your follow-up visit. WE look forward to seeing you!
[2025-06-20] MEDS: 0.9% Normal Saline (1000mL) 1,000 ML 150 ML IV (18:09)
[2025-06-20] MEDS: TICAGRELOR 90 MG TABLET PO (21:44)
[2025-06-21 04:22] VITALS: BMI 30.6
[2025-06-21 05:24] LABS: Hematocrit 41.6 % (40-54); Hemoglobin 13.6 g/dL (13.0-16.5); Immature Granulocytes Count 0.040 X10^3/uL (0.0-0.0); Mean Corp Hgb Conc 32.7 g/dL (32-36); Mean Corpuscular Volume 87.2 fL (80-94); Mean Platelet Vol. 10.1 fl (6.2-12.0); NRBC Flagged by Analyzer 0 % (0-5); Platelet Count 223 K/mm3 (150-450); RBC Distribution Width CV 13.7 % (11.6-14.6); RBC Distribution Width SD 43.7 fl (35.1-43.9); Red Blood Count 4.77 M/mm3 (4.6-6.2); White Blood Count 9.7 K/mm3 (4.4-11.0)
[2025-06-21 06:04] LABS: AST(SGOT) 55 U/L (<=37); Alanine Aminotransfer ALT/SGPT 37 U/L (<=46); Albumin, Serum 3.8 g/dL (3.4-4.8); Alkaline Phosphatase 50 U/L (40-129); Anion Gap 9 (5-15); BUN 10 mg/dL (4-19); BUN/Creat Ratio 8.2 RATIO (10-20); Calcium,Total 9.1 mg/dL (7.6-11.0); Carbon Dioxide 23.0 mmol/L (21.0-32.0); Chloride 105 mmol/L (98-108); Estimated Creatinine Clearance 57.66 ml/min (50-250); Globulin 2.8 g/dL (2.2-4.2); Glucose 131 mg/dL (70-99); Potassium 4.0 mmol/L (3.3-5.1)
[2025-06-21 06:14] VITALS: BP 150/87; PULSE 66; RESP 18; TEMP 36.7; O2SAT 96
[2025-06-21 06:19] VITALS: BP 150/87; PULSE 66
[2025-06-21] MEDS: Nitroglycerin Oint 1 INCH PACKET 0.5 INCH TD (06:19)
--- NOTE | 2025-06-21 10:00 | EKG12_ITS ---
Test Reason : PCI Blood Pressure : */* mmHG Vent. Rate : 61 BPM Atrial Rate : 61 BPM P-R Int : 170 ms QRS Dur : 90 ms QT Int : 450 ms P-R-T Axes : 68 16 128 degrees QTcB Int : 453 ms Normal sinus rhythm Inferior infarct , age undetermined ST & T wave abnormality, consider lateral ischemia Abnormal ECG When compared with ECG of 20-Jun-2025 16:23, MANUAL COMPARISON REQUIRED DATA IS UNCONFIRMED Confirmed by APRYL DORSEY, LARY ([id number]), medical editor ANAT MURCIA ([id number]) on 06/25/2025 9:30:08 AM Referred By: Confirmed By: LARY PINK MD
[2025-06-21 10:06] VITALS: BP 152/75; PULSE 68; RESP 16; TEMP 36.9; O2SAT 96
[2025-06-21] MEDS: TICAGRELOR 90 MG TABLET PO (10:08)
--- NOTE | 2025-06-21 10:39 | PCM.DC ---
Discharge Instructions DC O2, CPAP, BIPAP needs Home O2 Discharge instructions: No Dressing / Incision Discharge Activity: Return to Normal Activity Dressing / Incision Call your doctor if you observe: Fever of 101 or Higher, Shortness of breath, Dizziness, Fainting spells, Swelling in the ankles and Increased palpitations (irregular heartbeat) Follow Up Care Test Results: Test results from this visit will be discussed in further detail at your follow-up appointment, if applicable. Discharge Plan Admission Admit Date/Time: 06/19/25 22:09 Attending Provider: Jerome Agustin Primary Care Provider: Clem Stanley Consulting Providers: Nick Paige; Amelia Watt Instructions Patient Instructions: Coronary Stents Discharge Orders/Prescriptions Prescriptions: New atorvastatin 80 mg Tablet 80 mg PO QHS 30 Days Qty: 30 0RF carvedilol 3.125 mg Tablet 3.125 mg PO BID 30 Days Qty: 60 0RF ticagrelor 90 mg Tablet 90 mg PO BID 30 Days Qty: 60 0RF lisinopril 10 mg Tablet 10 mg PO DAILY 30 Days Qty: 30 0RF Continued aspirin 81 mg capsule 81 mg PO DAILY Referrals / Follow Up: Clem Stanley MD [Primary Care Provider, Family Practice] - Within 1 Week Nick Paige MD [Med Staff - Active Staff, Cardiology] - Within 2 Weeks Clem Stanley MD [[facility], Medical] Disposition Disposition (needs filled in before D/C Order can be placed): Home, Self Care
[2025-06-21 11:44] LABS: Mucous, Urine 0 SEEN /hpf (<or=2+); Red Blood Cells-Urine 0 SEEN /hpf (0-5); Squamous Epithelial Cells - UA 0 SEEN /hpf (0-5)
[2025-06-21 11:47] LABS: Color, Urine Straw (Yellow); Glucose, Dipstick Normal (Normal); Ketone-Dipstick Negative (Negative); Leukocyte Esterase-Dipstick 25 /ul (Negative); Nitrite-Dipstick Negative (Negative); Occult Blood-Urine 250 /ul (Negative); Protein-Dipstick 15 mg/dl (Negative); Specific Gravity, Urine 1.005 (1.002-1.030); Urine Bilirubin Dipstick Negative (Negative)
--- NOTE | 2025-06-21 12:28 | PHA.DC.COU.R ---
Pharmacy [facility] has performed discharge medication counseling for this patient. The patient was counseled on the following discharge medications and changes in medications for homegoing review. - Atorvastatin 80 mg tablet, Carvedilol 3.125 mg tablet, Ticagrelor 90 mg tablet The Reason for Use, instructions for use, and potential side effects were reviewed for all new medications. The patient's questions regarding all of their medications were answered. The patient was able to verbally demonstrate an understanding of their discharge medications. Medications at Discharge Home Medications aspirin 81 mg capsule 81 mg PO DAILY [facility] 06/19/25 atorvastatin 80 mg tablet 80 mg PO QHS 30 days #30 tabs 06/21/25 carvedilol 3.125 mg tablet 3.125 mg PO BID 30 days #60 tabs 06/21/25 lisinopril 10 mg tablet 10 mg PO DAILY 30 days #30 tabs 06/21/25 ticagrelor 90 mg tablet 90 mg PO BID 30 days #60 tabs 06/21/25
--- NOTE | 2025-06-21 12:39 | PCM.DC.SUM ---
Providers Date of Admission: 06/19/25 Primary Care Physician: Dr. Clem Stanley MD Consultations 06/19/25 23:09 Consult: Cardiology Routine Consulting Provider: Nick Paige Reason for Consult: Chest Pain, NSTEMI EMERGENT Consult: No MD Notified: Yes Date Notified: 06/19/25 Time Notified: 22:10 Method of Notification: ED Physician Initiated Reason For Visit: CHEST PAIN, NSTEMI Diagnosis Discharge Diagnosis (1) Non-ST elevation NH (NSTEMI): Status: Acute Code(s): I21.4 - Non-ST elevation (NSTEMI) myocardial infarction Medications at Discharge Home Medications aspirin 81 mg capsule 81 mg PO DAILY [facility] 06/19/25 atorvastatin 80 mg tablet 80 mg PO QHS 30 days #30 tabs 06/21/25 carvedilol 3.125 mg tablet 3.125 mg PO BID 30 days #60 tabs 06/21/25 lisinopril 10 mg tablet 10 mg PO DAILY 30 days #30 tabs 06/21/25 ticagrelor 90 mg tablet 90 mg PO BID 30 days #60 tabs 06/21/25 Hospital Course Operations None Procedures 2-D Echocardiogram and Cardiac catheterization Summary of Care Provided Minutes Spent on Discharge: 38 Hospital Course: Per HPI: 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/ PMHx: HTN (White Coat HTN), Macular degeneration, Obesity, CKD stage III unclear subtype or GFR trending who presents to the [facility] ED on 06/19/2025 with history of intermittent chest discomfort ongoing for the last week lasting up to 30 minutes at a time with midsternal discomfort with radiation into bilateral arms and toward his back with mild dyspnea in addition occurring at rest and with exertion with recent history of travel to [place] earlier in the month by vehicle but no specific report of pain to the legs or swelling but given ongoing discomfort prompted ED evaluation. He notes he is on herbal medication for his high blood pressure. He denies any diaphoresis or nausea or emesis. He does state that when his chest discomfort is at its worst it is rated 5 out of 10 in severity and is a dull aching sensation. Workup in the ED included T98.2, heart rate 88, BP initially 289, respiratory rate 18, 99% room air with most recent repeat vitals heart rate 71, BP 159/86, respiratory rate 16, 96% on room air, CBC with WC 8.6, hemoglobin 15.1, platelet 243 without marked shift, D-dimer pending upon request evaluation of patient, BUN/creatinine 14/1.55, GFR 47, glucose 117, troponin 139, chest x-ray with no focal consolidations, mild pulmonary vascular congestion, bilateral lower thoracic rib fractures unable to be excluded, EKG with diffuse ST depression. In the ED patient administered maintenance IV fluids, full-strength aspirin therapy, heparin bolus and drip as well as topical transdermal nitroglycerin. ED physician discussed case with Dr. Paige Tire Man. Hospital Course: 1. Non-STEMI status post stent to the RCA with an 80% mid LAD lesion/essential HTN/HLD–74-year-old male presented to the hospital with intermittent chest pain going on for about a week as well as some shortness of breath. His pain was radiating to his arms and back and he had an elevated troponin that peaked to 27 today underwent a heart cath that demonstrated almost complete occlusion in the RCA that was able to be stented. He was started on Brilinta as well as his aspirin he did develop some mild hematuria that has resolved. He has tolerated medications well and denies any chest pain currently. He does have an 80% LAD lesion that will need to be stented at a later date. He was started on Coreg 3.125 mg p.o. twice daily for high blood pressure and today he obtained a urine analysis that demonstrated some protein in his urine therefore proceeded to start him on lisinopril 10 mg p.o. daily. He did have an echocardiogram during this admission that showed a moderate posterior and inferior hypokinesis with an EF of 55% and stage I diastolic dysfunction. I do recommend he follow-up with cardiology as an outpatient and he will follow-up with his PCP in 3 to 5 days. He will need to have a BMP on follow-up as his renal function was little bit elevated to 1.2 and he has been started on an ALLAN inhibitor. Physical Exam Narrative General: Alert, Oriented x3, Cooperative, No apparent distress HEENT: Atraumatic, PERRLA, EOMI, Normocephalic Oral: Moist Mucosa Neck: Supple, No JVD Lungs: Diminished, Normal air movement, No rhonchi, No wheeze, No rales Cardiovascular: Regular rate, Regular Rhythm, Normal S1, Normal S2, No murmurs Abdomen: Soft, Non Tender, Non-Distended, No Hepato-splenomegaly Extremities: No edema, Capillary Refill Less than 3 Seconds Skin: No rashes, No breakdown Musculoskeletal: No Tenderness to Palpation of Joints or Extremities Neurological: No focal neurological deficits, moves all extremities Psych/Mental Status: Normal Affect, Appropriate Weight / BMI Weight Weight: 195 lb 5.273 oz Body Mass Index (BMI) 30.6 ABG / Lab / Microbiology Data 06/21/25 05:00 06/21/25 05:00 Laboratory: Laboratory Results - last 24 hr 06/20/25 14:06: Activated Clotting Time 179 H 06/21/25 05:00: WBC 9.7, RBC 4.77, Hgb 13.6, Hct 41.6, MCV 87.2, MCH 28.5, MCHC 32.7, RDW Std Deviation 43.7, RDW Coeff of [place]cy 13.7, Plt Count 223, MPV 10.1, Immature Gran % (Auto) 0.400, Neut % (Auto) 68.0, Lymph % (Auto) 20.4, [place] % (Auto) 9.5, Eos % (Auto) 1.4, Baso % (Auto) 0.3, Absolute Neuts (auto) 6.6, Absolute Lymphs (auto) 1.99, Nucleated RBC % 0, Sodium 137, Potassium 4.0, Chloride 105, Carbon Dioxide 23.0, Anion Gap 9, BUN 10, Creatinine 1.23 H, Estim Creat Clear Calc 57.66, Est GFR (MDRD) Non-Af 62, BUN/Creatinine Ratio 8.2 L, Glucose 131 H, Calcium 9.1, Total Bilirubin 0.92, AST 55 H, ALT 37, Alkaline Phosphatase 50, Total Protein 6.6, Albumin 3.8, Globulin 2.8, Albumin/Globulin Ratio 1.4 06/21/25 11:20: Urine Color Straw, Urine Clarity Clear, Urine pH 7.0, Ur Specific Reasnor 1.005, Urine Protein 15 H, Urine Glucose (UA) Normal, Urine Ketones Negative, Urine Occult Blood 250 H, Urine Nitrite Negative, Urine Bilirubin Negative, Urine Urobilinogen Normal, Ur Leukocyte Esterase 25 H, Urine RBC 0 SEEN, Urine WBC 0 SEEN, Ur Squamous Epith Cells 0 SEEN, Urine Bacteria 0 SEEN, Urine Mucus 0 SEEN D/C Instructions Call your doctor if you observe: Fever of 101 or Higher, Shortness of breath, Dizziness, Fainting spells, Swelling in the ankles and Increased palpitations (irregular heartbeat) DC O2, CPAP, BIPAP Needs Home O2 Discharge instructions: No Meaningful Use Info Meaningful Use Meaningful Use Diagnoses (Choose all that apply): None applicable Discharge Plan Admission Admit Date/Time: 06/19/25 22:09 Attending Provider: Jerome Agustin Primary Care Provider: Clem Stanley Consulting Providers: Nick Paige; Amelia Watt Instructions Patient Instructions: Coronary Stents Discharge Orders/Prescriptions Prescriptions: New atorvastatin 80 mg Tablet 80 mg PO QHS 30 Days Qty: 30 0RF carvedilol 3.125 mg Tablet 3.125 mg PO BID 30 Days Qty: 60 0RF ticagrelor 90 mg Tablet 90 mg PO BID 30 Days Qty: 60 0RF lisinopril 10 mg Tablet 10 mg PO DAILY 30 Days Qty: 30 0RF Continued aspirin 81 mg capsule 81 mg PO DAILY Referrals / Follow Up: Clem Stanley MD [Primary Care Provider, Family Practice] - Within 1 Week Nick Paige MD [Med Staff - Active Staff, Cardiology] - Within 2 Weeks Clem Stanley MD [[facility], Medical] Disposition Disposition (needs filled in before D/C Order can be placed): Home, Self Care Charges/Coding Visit Charges Inpatient E&M: 39521 Disch Hosp >30min
--- NOTE | 2025-06-21 13:34 | CASEMGMT ---
Patient has order for discharge. RN CM in to discuss needs at discharge. Patient denies needs or help at discharge. Patient had no further questions or concerns.
[2025-06-21 14:04] VITALS: BP 161/94; PULSE 64; RESP 16; TEMP 36.5; O2SAT 98
--- NOTE | 2025-06-21 14:05 | CL.I_ITS ---
Patient Name: CARLI LOWE Study Date: 06/20/2025 Performing: Louann Hurtado MD Ht: 67 inches 170.18 cm : 1950 Wt: 196.5 lbs 89 kg Age: 74 Gender: male BSA: 2.01 PROCEDURE(S) PERFORMED DC01-(37899)LHC/COR/LV IC12-(38658/[id number])MERCEDES W/WO PTCA, SINGLE CORONARY ARTERY CLINICAL PROFILE AND CO-MORBIDITIES Indications: ACS <= 24 hrs, NSTEMI Heart Failure: None CONCLUSIONS CAD as described. No significant aortic stenosis. Successful MERCEDES to mid RCA. RECOMMENDATIONS Return for PCI of LAD +/- ramus in 2 to 4 weeks DESCRIPTION OF PROCEDURE The patient arrived to the procedure lab. The risks and benefits of the procedure as well as a full description of our services here and lack of surgical backup were fully explained to the patient and/or their significant other prior to the catheterization. The Timeout was completed, verifying the correct patient and procedure. The patient's procedural site was prepped and draped in the usual fashion. Local anesthetic was given subcutaneously to right radial region with Lidocaine 2%. Using a modified Seldinger technique, arterial access was obtained via the right radial artery, a 6Fr sheath was inserted.. Left Coronary Artery selective angiography was performed in multiple views using a 5 Fr. 4.0 [place] catheter. Right Coronary Artery selective angiography was then performed in multiple views using a 5 Fr. JR 4 catheterThe images were reviewed and options discussed. A decision was then made to proceed with an Intervention, IVUS or other adjunct procedure. ar 1 Guide catheter was inserted and engaged into the RCA. bmw Guide wire was advanced to the RCA. sc euphora 3.0 x 12 Balloon catheter was advanced across lesion in the right coronary, mid. PTCA balloon inflated at 6 atms for 14 secs. PTCA balloon inflated at 6 atms for 9 secs. Angiogram performed post balloon dilatation. ting 4.0 x 26 Drug Eluting stent was advanced across the lesion in the right coronary, mid. Angiogram performed post stent deployment. The arterial sheath was pulled and a TR Band was applied for hemostasis CORONARY ANGIOGRAPHY DOMINANCE: Right Dominant LEFT HEART ASSESSMENT LEFT MAIN: Mild luminal irregularities LEFT ANTERIOR DESCENDING ARTERY: MID LAD: 80 % Stenosis CIRCUMFLEX ARTERY: OSTIAL CIRC: 50 % Stenosis RAMUS: 70-80% proximal stenosis RIGHT CORONARY ARTERY: MID RCA: 99 % Stenosis VALVE FINDINGS: No Aortic Valve Stenosis INTERVENTION INFORMATION LESION SITE: RCA (Mid) Lesion Complexity: High/C, chronic total occlusion: No, lesion at bifurcation: No, thrombus present: No, lesion length: 20 mm, culprit lesion: Yes, Previously treated lesion: No Pre Stenosis: 99 % Pre intervention AVINASH flow: 2 PROCEDURE: Drug Eluting Stent with pre dilatation. Post Stenosis: 0 % Post intervention AVINASH flow: 3 Lesion Devices: Tee .014 190cm BMW Adair Straight Cordis 6 Fr AR1 100cm Guide Catheter Medtronic SC EUPHORA RX 3.0x12 BALLOON [employer] 6 Swedish GuideLiner Medtronic 4.0 x 26 TING FRONTIER MERCEDES COMPLICATIONS No Complications PROCEDURE MEDICATIONS Versed 1 mg IV Fentanyl 50 mcg IV Oxygen: 2 L/min via nasal cannula Brilinta 180 mg PO @ 06/20/2025 13:21:56 Heparin given IA 06/20/2025 13:30:24 Heparin 3000 unit(s) IV 06/20/2025 14:10:14 Verapamil 2.5mg, Ntg 100mcgs, 3000 units of Heparin given IA 06/20/2025 13:30:24 SUMMARY OF HEMODYNAMIC DATA Time AIR REST ECG 13:09:25 AO 93/49 (63) SA 13:29:20 LV 109/6, 17 13:34:03 LVp 100/6, 12 13:34:10 AOp 97/55 (73) 13:34:15 Signed By Louann Hurtado MD On 06/21/2025 14:05:10 Louann Hurtado MD
== END 2025-06-21 14:35 | disposition home or self-care (01) | DRG 322 ==
LOC: ED 22:05 → PCU 22:37
PROVIDERS: Admitting Provider Family Medicine; Emergency Provider Emergency Medicine; PCP Family Medicine; Visit Provider Family Medicine
DX: I21.4 Non-ST elevation (NSTEMI) myocardial infarction (principal); E66.89 Other obesity not elsewhere classified; N18.31 Chronic kidney disease, stage 3a; I12.9 Hypertensive chronic kidney disease with stage 1 through stage 4 chronic kidney disease, or unspecified chronic kidney disease; E78.2 Mixed hyperlipidemia; I25.10 Atherosclerotic heart disease of native coronary artery without angina pectoris; R73.01 Impaired fasting glucose; Z68.33 Body mass index [BMI] 33.0-33.9, adult; Z79.899 Other long term (current) drug therapy; Z87.891 Personal history of nicotine dependence
CPT/HCPCS: 36415; 71045; 80048; 80053; 80061; 81001; 83735; 84484; 85025; 85347; 85379; 85610; 85730; 92928; 93005; 93306; 93458; 94668; 99152; 99153; 99285; C1769; C1887; C1894; Q9967; A4216; C1725; C1874; C9600; J1327

== ENCOUNTER → 2025-07-11 | Outpatient (CLI) | payer MEDICARE, SELFPAY ==
--- NOTE | 2025-07-11 14:02 | CR.HP_ITS ---
CR - History & Physical General Arrival date:: 07/11/25 Arrival time:: 14:02 Date of Referral:: 06/20/25 Date of CR Evaluation:: 07/11/25 Referring Physician: Dr. Dolan Primary Diagnosis: PCI w/stenting History of Present Cardiac Event Onset Date PTCA or coronary stenting:: Yes (06/20/25 onset) Vessel: mid RCA Medications Ambulatory Orders ?Medication ?Instructions ?Recorded aspirin 81 mg capsule 81 mg PO DAILY [facility] 06/19/25 atorvastatin 80 mg tablet 80 mg PO QHS 30 days #30 tab s 06/21/25 carvedilol 3.125 mg tablet 3.125 mg PO BID 30 days #60 tabs 06/21/25 lisinopril 10 mg tablet 10 mg PO DAILY 30 days #30 t abs 06/21/25 ticagrelor 90 mg tablet 90 mg PO BID 30 days #60 tab s 06/21/25 faricimab-svoa 6 mg/0.05 mL 0.05 ml intravitreal Q4W 1 09/01/24 [facility] Allergies Allergies No Known Allergies Allergy (Verified 07/02/25 09:29) Sleep Disorder Evaluation Hx of Sleep Apnea: No Do you snore loudly (louder than talking or can be heard through closed doors)?: No Do you often feel tired/ fatigued/ sleepy during daytime?: No Has anyone observed you stop breathing during sleep?: No History of Hypertension (for STOP score): Yes STOP Results: Negative Advanced Directives Advanced Directives Do you have a Healthcare Power of Lead Security Officer?: Yes Living Will: Yes Advance Directives Information Provided: No Advance Directives on File: No DNR Order?:: No Past Medical History Covid-19 Screening Physicial Symptoms Other Clinical Concerns Exposure Risk Pertinent Comorbidities 65 years or older:: Yes Has a serious heart condition:: Yes Past Medical Illness Medical History Obesity Chronic kidney disease (CKD), stage III (moderate) Hypertension Macular degeneration Past Surgical History Surgical History Stented coronary artery (06/20/25) Hx of tonsillectomy Hx of appendectomy Family History Summary Family History (Reviewed 07/02/25 @ 10:07 by Tremayne Cortez PSYCHIATRIC REGISTERED NURSE, PSYCHIATRIC REGISTERED NURSE-C) Mother CAD (coronary artery disease) Heart disease Hypertension Father Hypertension Colon cancer Dx in his 70s. Social History Smoking History Smoking Status: Never smoker Alcohol Use Alcohol Usage: No Substance Abuse Hx Substance Use: No Occupation Occupation (List type of work in comments):: Employed Social Environment Status Marital Status: Current Living Arrangements Living Environment:: Spouse Children How many children do you have?: 4 Do any of your children live nearby?: Yes Safety Do you feel safe in your surroundings?: Yes Assistance Do you need any assistance at home?: no Review of Systems Review of Systems Hints Review of Present Symptoms: Reports Appetite - Normal, Appetite - Special Diet and Sleep - Normal; Denies Shortness of Breath at Rest, Shortness of Breath with Exertion, PVD, Operative Discomfort, Angina, Wound Healing, Dizziness/Lightheadedness, Fatigue, Heart Arrhythmia/Irregularities or Sexual Changes Pain Is Patient Pain Free?: Yes Risk Factor Assessment Chief Complaint Chief Complaint: PCI w/stenting Vital Signs Pulse Ox: 98 Blood Pressure: 150/86 Pulse Pulse Rate: 57 Pulse Rhythm: Regular Hypertension How long have you been treated?: 3-5 years Blood Pressure Sitting - Right Arm: 150/86 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) Obesity Height: 5 ft 7 in Weight:: 200 lb Weight in Pounds: 200.0 lbs Body Mass Index (BMI): 31.3 Nutritional Referral for Obesity: No Physical Inactivity Physical Inactivity: None Risk Stratification Risk Guidelines: Lowest Risk: Risk Factor for Smoking and Risk Factor for Depression, Moderate Risk: Risk Factor for Diabetes, Risk Factor for Obesity and Risk Factor for Sedentary Lifestyle and Highest Risk: Risk Factor for Dyslipidemia and Risk Factor for Hypertension For Smoking Smoking Risk Guidelines For Dyslipidemia Dyslipidemia Risk Guidelines For Diabetes Mellitus Diabetes Risk Guidelines For Obesity/Overweight Obesity/Overweight Risk Guidelines For Hypertension Hypertension Risk Guidelines For Sedentary Lifestyle Sedentary Lifestyle Risk Guidelines For Depression Depression Risk Guidelines Family History Family History Mother CAD (coronary artery disease) Heart disease Hypertension Father Hypertension Colon cancer Dx in his 70s. Motivation Motivation to Participate On a scale of 1 to 10, how prepared are you to commit to attending program?: 10 What do you see as barriers to successfully being able to complete the program?: nothing What do you see as the benefits of succesfully completing the program? In other words, what do you hope to get out of participating in the program?: more energy, stronger Are there issues you are dealing with that will interfere with completing the program?: no Do you have a spouse or signficant other, family or friends who will help support you to complete the program?: yes
[2025-07-11 14:13] VITALS: BP 150/86; PULSE 57; O2SAT 98
[2025-07-11 14:16] VITALS: BP 150/86; BMI 31.3
--- NOTE | 2025-07-11 14:50 | PCM.CR.ITP ---
Diagnosis General Information Admitting Diagnosis: PCI w/stenting Secondary Diagnosis: [place]-NonSTEMI<12months Personal Learning Style:: Audio/Visual Barriers to Learning: No Barriers Stage of change r/t lifestyle modifications:: Contemplation Gave educational material for:: Treating Heart Disease, How The Heart Works, What it means to have Heart Disease, How Coronary Artery Disease is Diagnosed, Heart Procedures, What Heart Medications Do, Risk Factors & Modifications, Living an Active Life, Nutrition, Emotions & Heart Disease, Stress Management & Relaxation and Sleep Disorders & Heart Disease Education/Goals Cardiac Rehabilitation Goals Personal Goals: Initial Assessment: Improve management of stress and emotions, Improve energy level, Participate in home exercise program, Improve knowledge of cardiac disease, Improve muscle strength and endurance, Improve diet and eating habits (eat healthier) and Control risk factors (learn risk factor modification) Scale for measuring improvement of personal goals Diagnosis & Disease Process Outcomes/Goals: Pt IDs own risk factors & lifestyle modifications by Session 10, Verbalizes symptoms of angina & response by session 3., Pt independently manages and Other Additional Outcomes/Goals: Plan/Interventions: Assist Pt to ID & engage in lifestyle modification to reduce CVD risk, Instruct on individual risk factors, Review symptoms of angina & emergency actions, Review secondary diagnosis & identify educational needs. and Other see comment 30 day Reassessments:: Not Met 30 day Reassessments:: Not Met 30 day Reassessments:: Not Met 30 day Reassessments:: Not Met Final Reassessments:: Not Met Safety Referral to Physical Therapy: No Referral to [facility] Case Management: No Fall Risk Assessed:: Yes Assistive Devices:: None Exercise - Initial Assessment Visit Date of Eval: 07/11/25 (initial eval) Mets: Pre-: >3 METS for 30 minutes by discharge, >5 METS for 30 minutes by discharge and >7 METS for 30 minutes by discharge Physician Prescribed Exercise Modalities: Treadmill, Rower, Schwinn Airdyne AD-7, SciFit Stepper, SciFit Pro-II Ergometer and SciFit Lateral Refrigeration Lead Frequency: 3x/week for 12 weeks [36 sessions] Intensity: 60-80% of age predicted maximum heart rate reserve Duration: 30 - 45 minutes Current METSs:: 3 Target Heart Rate:: 89-111 Resting Blood Pressure: 150/86 EKG Type: NSR Outcomes & Goals Goals:: Verbalizes understanding of THR, RPE & goal METS by session 6, Documents in home exercise log/reports 30 min aerobic 5 day/wk by DC, Demonstrates accurate pulse taking by DC and Other additional outcome/goals: see below Intervention & Plan Exercise Program Goals: Instruct on personal THR & RPE, Instruct on MET level & personal MET goal, Show patient to take own pulse /validate performance until accurate, Instruct on home exercise and Other additional plan/int Physical Activity Home Exercise Physical Activity - Home Exercise: Safe Exercise, Warm-up, Self-monitoring, Cool-Down, Home Exercise > 30 min Daily and Sitting Time <3 hours/daily Outcomes & Goals Outcomes/Goals: Demonstrates correct Warm-up/exercise Cool-Down (S3) if = 2.5 METs, Verbalizes symptoms of exercise intolerance by Session 3 (S3), Demonstrate safe equipment use (S3) & follows exercise prescrition (6) and Other: See below Intervention & Plan Plan/Intervention: Instruct warm-up & cool-down if exercising at > 2 METs, Instruct on symptoms of exercise intolerance & actions to take, Instruct & monitor on saf, Assess intial functional capacity & safety risk and Other See below Nutrition - Initial Assessment Program Goals Nutrition Program Goals Patient has diagnosis of Hyperlipidemia (ICD E78)?: Yes Visit Date of Eval: 07/11/25 (initial eval. Nutrition survey score of 1.) Cholesterol/Lipids (Other Core Measures) Determine presence & major risk factors that modify LDL goal: Cigarette smoking, Hypertension or hypertensive medication, Low HDL cholesterol <40 mg/dL*, Family history of premature CHD in Male < 55 years: female <65 yearsFa and Age men > 45 years; women >/= 55 years Outcomes/Goals: Pt IDs own risk factors & lifestyle modifications by Session 10, Verbalizes symptoms of angina & response by session 3., Pt independently manages and Other Additional Outcomes/Goals: Intervention/Plan: Advocate for lipid panel cholesterol medication if applicable, Instruct on personal lipid levels & lipid goals/NCEP guidelines, Instruct on cholesterol and Other additional plan/int Referral to dietitian:: No (declines) Diabetes (Other Core Measures) Diabetes Type: Not Applicable Weight Mgt (Other Care) Height: 5 ft 7 in Weight:: 200 lb BMI: 31.3 Diagnosis Overweight/Obesity BMI> 30% ICD-10 E66: Yes Diagnosis High BMI/Morbid Obesity BMI> 35% ICD-10 Z68: No Outcomes/Goals: Pt sets, maintains & shows weight loss goal & trend during rehab and Other additional outcomes/goals Intervention/Plan: Instruct on ideal BMI & set weight loss goal w/patient, Assist pt to ID & incorporate diet changes for weight loss by S9, Refer to Structured Weight Loss program as appropriate, Encourage goal of using 250-300dcal per session for weight loss and Other additional plan/interventions Healthy Eating Habits Will attend diet classes:: Yes Outcomes/Goals:: Consume diet rich in vegs,fruits,whole grain/high fiber,fish,lean meat, Limit sat/trans fats,cholesterol & added salts & sugars and Other additional outcome/goals: Intervention/Plan:: Assess current eating habits and Other Additional plan/interventions Education Gave educational materials for:: Signs & symptoms of hypoglycemia, Signs & symptoms of hyperglycemia, Relate diabetes to coronary artery disease and Healthy eating Core - Initial Assessment Visit Date of Eval: 07/11/25 (initial eval) Medication Compliance Preventative Medication(s):: Aspirin, ALLAN inhibitor, Ticagrelor/P2Y12 inhibitor, Statin/lipid and Beta matt H/O mental health issues: depression, anxiety, or addiction?: No Doesn?t believe in the benefits of treatment?: No Believes medications are unnecessary or harmful?: No Has a concern about medication side effects?: No Expresses concern over the cost of medications?: No Outcomes/Goals: Verbalizes medications,desired effect & common side effects @ DC, Pt self-reports following medication regimen, Keeps card in wallet w/medications listed by DC and Other additional outcome/goals: Interventions/plans: Instruct on medication effects & side effects, Review medication list w/patient every two weeks, Instruct importance of taking meds as ordered & assist problem solving and Other additional Tobacco Use Tobacco Use: Non-smoker Hypertension Hypertension Diagnosis:: Hypertension ICD-10 I10 Resting Blood Pressure:: 150/86 [place] [employer] Hypertension Guidelines Outcomes/Goals: Able to verbalize/achieve optimal blood pressure <130/80, Incorporates diet changes & exercise for blood pressure control by DC and Other additional outcomes/goals Interventions/plan: Instruct on optimal blood pressure, hypertension & medications, Instruct on effects of sodium, alcohol, stress, exercise &hypertension and Other additional plan/interventions Tobacco Cessation Referral Smoking Cessation Referral:: No Individual Education/Counseling:: No Education Schedule Given:: Yes Psychosocial - Initial Assess VIsit Date of Eval: 07/11/25 (initial eval) History of previous Mental disease:: No Psychosocial Test Tool Used:: [employer] QOL Cardiac and PHQ-9 Questionnaire phq-9 Severity See PHQ-9 Score: 0 Referral to Behavioral Health PS - Interventions: Yes: Attend Stress Management Classes Outcomes/Goals: See list Psychosocial Outcomes/Goals:: ID's personal stressors & 2 strategies to manage stress by discharge and Other Additional outcome/goals: Intervention/Plan: See List Interventions/Plan:: Assess stressors,coping strategies & signs of derpression on admission, Instruct/assist pt to develop coping & personal stress Mgt strategies, Refer to Behavioral Health if appropriate, Refer to Physician if appropriate, Instruct patient to recognize signs & symptoms of depression, Instruct patient to recog and Other additional plan/intervention Exercise - 30-day Assessment Physician Prescribed Exercise Modalities: Treadmill, Rower, Schwinn Airdyne AD-7, SciFit Stepper, SciFit Pro-II Ergometer and SciFit Lateral [place] Exercise - 60-day Assessment Physician Prescribed Exercise Modalities: Treadmill, Rower, Schwinn Airdyne AD-7, SciFit Stepper, SciFit Pro-II Ergometer and SciFit Lateral Refrigeration Lead Exercise - 90-day Assessment Physician Prescribed Exercise Modalities: Treadmill, Rower, Schwinn Airdyne AD-7, SciFit Stepper, SciFit Pro-II Ergometer and SciFit Lateral [place] Exercise - Final/Discharge Physician Prescribed Exercise Modalities: Treadmill, Rower, Schwinn Airdyne AD-7, SciFit Stepper, SciFit Pro-II Ergometer and SciFit Lateral Refrigeration Lead Frequency: 3x/week for 12 weeks [36 sessions] Intensity: 60-80% of age predicted maximum heart rate reserve Current METSs:: 3 Target Heart Rate:: 89-111 Nutrition - 30-Day Assessment Weight Mgt (Other Care) Height: 5 ft 7 in Weight:: 200 lb BMI: 31.3 Nutrition - 60-Day Assessment Weight Mgt (Other Care) Height: 5 ft 7 in Weight:: 200 lb BMI: 31.3 Core - Final Assessment Hypertension Resting Blood Pressure:: 150/86 [place] [employer] Hypertension Guidelines Core - 60-Day Assessment Hypertension Resting Blood Pressure:: 150/86 [place] [employer] Hypertension Guidelines Psychosocial - 30-Day Assess Referral to Behavioral Health PS - Interventions: Yes: Attend Stress Management Classes Psychosocial - 60-Day Assess Referral to Behavioral Health PS - Interventions: Yes: Attend Stress Management Classes Psychosocial - 90-Day Assess Referral to Behavioral Health PS - Interventions: Yes: Attend Stress Management Classes Psychosocial - Final Assessmen Psychosocial Test phq-9 Severity See PHQ-9 Score: 0 Referral to Behavioral Health PS - Interventions: Yes: Attend Stress Management Classes Nutrition - 90-Day Assessment Weight Mgt (Other Care) Height: 5 ft 7 in Weight:: 200 lb BMI: 31.3 Nutrition - Final Assessment Program Goals Patient has diagnosis of Hyperlipidemia (ICD E78)?: Yes Weight Mgt (Other Care) Height: 5 ft 7 in Weight:: 200 lb BMI: 31.3
[2025-07-11 15:00] VITALS: BP 150/86; BMI 31.3
--- OUTSIDE RECORDS SUMMARY | 2025-07-11 16:30 | XMS RPT_ITS | CCD ---
Author Organization [facility] Inform ion Partnership [facility] Care Team Providers Care Application Security Architect Name Role Phone [facility] Unavailable Horace Alexis Attending Unavailable Nick Paige Consulting Unavailable White, Amelia L Admitting Unavailable [facility] Unavailable Jerome Agustin Attending Unavailable White, Amelia L Consulting Unavailable Jerome Agustin Consulting Unavailable White, Amelia L Consulting Unavailable White, Amelia L Attending Unavailable [facility] Unavailable White, Amelia L Admitting Unavailable White, Amelia L Admitting Unavailable Jerome Agustin Attending Unavailable Royal, Nick Consulting Unavailable [facility] Unavailable White, Amelia L Consulting Unavailable Royal, Nick Consulting Unavailable Nick Paige Attending Unavailable White, Amelia L Admitting Unavailable [facility] Unavailable White, Amelia L Consulting Unavailable Jerome Agustin Consulting Unavailable Problems Problem Classification Problem Date Documented Da te Episodic/Chronic Acute myocardial infarction (1 source) Non-ST elevation (NSTEMI) myocardial infarction; Translations: [Non-ST elevation (NSTEMI) myocardial infarction] Onset: 06-21-2025 Chronic Chronic kidney disease (1 source) Chronic kidney disease; Translations: [Chronic kidney disease, stage 3a] Onset: 06-21-2025 Diabetes mellitus without complication (1 source) Impaired fasting glucose; Translations: [Impaired fasting glucose] Onset: 06-21-2025 Episodic Disorders of lipid metabolism (1 source) Mixed hyperlipidemia; Translations: [Mixed hyperlipidemia] Onset: 06-21-2025 Chronic Essential hypertension (1 source) Essential (primary) hypertension; Translations: [Essential (primary) hypertension] Onset: 06-21-2025 Chronic Results Test Name Value Interpretation Reference Range Facility CBC W/Diff, Automatedon 11-1 3-2025 Absolute Lymph 1.99 X10 3/uL Normal 0.83-4.51 [facility] Comment on above: Performed By: #### L 501.4021, L500.2500, L100.0100 #### [facility] [address] [place], [address] Absolute Neut 6.6 X10 3/uL Normal 2.0-7.7 [facility] Comment on above: Performed By: #### L 501.4021, L500.2500, L100.0100 #### [facility] [address] [place], [address] Basophils/100 WBC (Bld) 0.3 % Normal 0-1 [facility] Comment on above: Performed By: #### L 501.4021, L500.2500, L100.0100 #### [facility] [address] [place], [address] Eosinophils/100 WBC (Bld) 1.4 % Normal 0-5 [facility] Comment on above: Performed By: #### L 501.4021, L500.2500, L100.0100 #### [facility] [address] [place], [address] Erythrocyte distribution width (RBC) [Ratio] 13.7 % Normal 11.6-14.6 [facility] Comment on above: Performed By: #### L 501.4021, L500.2500, L100.0100 #### [facility] [address] [place], [address] Hematocrit (Bld) [Volume fraction] 41.6 % Normal 40-54 [facility] Comment on above: Performed By: #### L 501.4021, L500.2500, L100.0100 #### [facility] [address] [place], [address] Hemoglobin (Bld) [Mass/Vol] 13.6 g/dL Normal 13.0-16.5 [facility] Comment on above: Performed By: #### L 501.4021, L500.2500, L100.0100 #### [facility] [address] [place], [address] IG% 0.400 Normal 0.0-0.9 [facility] Comment on above: Result Comment: IG% - Immature Granulocytes (promyelocytes, myelocytes and metamyelocytes) > 1% indicates that a LEFT SHIFT is Present. Performed By: #### L 501.4021, L500.2500, L100.0100 #### [facility] [address] [place], [address] Lymphocytes/100 WBC (Bld) 20.4 % Normal 19-41 [facility] Comment on above: Performed By: #### L 501.4021, L500.2500, L100.0100 #### [facility] [address] [place], [address] MCH (RBC) [Entitic mass] 28.5 pg Normal 27.0-32.0 [facility] Comment on above: Performed By: #### L 501.4021, L500.2500, L100.0100 #### [facility] [address] [place], [address] MCHC (RBC) [Mass/Vol] 32.7 g/dL Normal 32-36 [facility] Comment on above: Performed By: #### L 501.4021, L500.2500, L100.0100 #### [facility] [address] [place], [address] MCV (RBC) [Entitic vol] 87.2 fL Normal 80-94 [facility] Comment on above: Performed By: #### L 501.4021, L500.2500, L100.0100 #### [facility] [address] [place], [address] Monocytes/100 WBC (Bld) 9.5 % Normal 0-10 [facility] Comment on above: Performed By: #### L 501.4021, L500.2500, L100.0100 #### [facility] [address] [place], [address] Neutrophils/100 WBC (Bld) 68.0 % Normal 47-70 [facility] Comment on above: Performed By: #### L 501.4021, L500.2500, L100.0100 #### [facility] [address] [place], [address] Nucleated RBC (Bld) [#/Vol] 0 10*3/uL Normal 0-5 [facility] Comment on above: Performed By: #### L 501.4021, L500.2500, L100.0100 #### [facility] [address] [place], [address] Platelet mean volume (Bld) [Entitic vol] 10.1 fL Normal 6.2-12.0 [facility] Comment on above: Performed By: #### L 501.4021, L500.2500, L100.0100 #### [facility] [address] [place], [address] Platelets (Bld) [#/Vol] 223 10*3/uL Normal 150-450 [facility] Comment on above: Performed By: #### L 501.4021, L500.2500, L100.0100 #### [facility] [address] [place], [address] RBC (Bld) [#/Vol] 4.77 10*6/uL Normal 4.6-6.2 [facility] Comment on above: Performed By: #### L 501.4021, L500.2500, L100.0100 #### [facility] [address] [place], [address] RDW SD 43.7 fl Normal 35.1-43.9 [facility] Comment on above: Performed By: #### L 501.4021, L500.2500, L100.0100 #### [facility] [address] [place], [address] WBC (Bld) [#/Vol] 9.7 10*3/uL Normal 4.4-11.0 [facility] Comment on above: Performed By: #### L 501.4021, L500.2500, L100.0100 #### [facility] [address] [place], [address] [facility] Albumin [Mass/Vol] 3.8 g/dL Normal 3.4-4.8 [facility] Comment on above: Performed By: #### L 501.4021, L500.2500, L100.0100 #### [facility] [address] [place], [address] Albumin/Globulin [Mass ratio] 1.4 {ratio} Normal 0.9-2.4 [facility] Comment on above: Performed By: #### L 501.4021, L500.2500, L100.0100 #### [facility] [address] [place], [address] ALK PHOS 50 U/L Normal 40-129 [facility] Comment on above: Performed By: #### L 501.4021, L500.2500, L100.0100 #### [facility] [address] [place], [address] ALT [Catalytic activity/Vol] 37 U/L Normal <=46 [facility] Comment on above: Performed By: #### L 501.4021, L500.2500, L100.0100 #### [facility] [address] [place], [address] AST [Catalytic activity/Vol] 55 U/L High <=37 [facility] Comment on above: Performed By: #### L 501.4021, L500.2500, L100.0100 #### [facility] [address] [place], [address] Bilirubin [Mass/Vol] 0.92 mg/dL Normal 0.00-1.30 [facility] Comment on above: Performed By: #### L 501.4021, L500.2500, L100.0100 #### [facility] [address] [place], [address] BUN/CRE 8.2 RATIO Low 10-20 [facility] Comment on above: Performed By: #### L 501.4021, L500.2500, L100.0100 #### [facility] [address] [place], [address] Calcium [Mass/Vol] 9.1 mg/dL Normal 7.6-11.0 [facility] Comment on above: Performed By: #### L 501.4021, L500.2500, L100.0100 #### [facility] [address] [place], [address] Chloride [Moles/Vol] 105 mmol/L Normal 98-108 [facility] Comment on above: Performed By: #### L 501.4021, L500.2500, L100.0100 #### [facility] [address] [place], [address] CO2 [Moles/Vol] 23.0 mmol/L Normal 21.0-32.0 [facility] Comment on above: Performed By: #### L 501.4021, L500.2500, L100.0100 #### [facility] [address] [place], [address] Creatinine [Mass/Vol] 1.23 mg/dL High 0.70-1.20 [facility] Comment on above: Performed By: #### L 501.4021, L500.2500, L100.0100 #### [facility] [address] [place], [address] ECRCL 57.66 ml/min Normal 50-250 [facility] Comment on above: Performed By: #### L 501.4021, L500.2500, L100.0100 #### [facility] [address] [place], [address] GAP 9 Normal 5-15 [facility] Comment on above: Performed By: #### L 501.4021, L500.2500, L100.0100 #### [facility] [address] [place], [address] GFR/1.73 sq M.predicted among non-blacks MDRD (S/P/Bld) [Vol rate/Area] 62 mL/min/{1.73_m2} Normal >60 [facility] Comment on above: Result Comment: mL/m in/1.73m2 CKD-EPI Creatinine Equation (2020) Performed By: #### L 501.4021, L500.2500, L100.0100 #### [facility] [address] [place], [address] Globulin (S) [Mass/Vol] 2.8 g/dL Normal 2.2-4.2 [facility] Comment on above: Performed By: #### L 501.4021, L500.2500, L100.0100 #### [facility] [address] [place], [address] Glucose [Mass/Vol] 131 mg/dL High 70-99 [facility] Comment on above: Performed By: #### L 501.4021, L500.2500, L100.0100 #### [facility] [address] [place], [address] Potassium [Moles/Vol] 4.0 mmol/L Normal 3.3-5.1 [facility] Comment on above: Performed By: #### L 501.4021, L500.2500, L100.0100 #### [facility] [address] [place], [address] Sodium [Moles/Vol] 137 mmol/L Normal 133-145 [facility] Comment on above: Performed By: #### L 501.4021, L500.2500, L100.0100 #### [facility] [address] [place], [address] T PROT 6.6 g/dL Normal 5.9-8.4 [facility] Comment on above: Performed By: #### L 501.4021, L500.2500, L100.0100 #### [facility] [address] [place], [address] Urea nitrogen [Mass/Vol] 10 mg/dL Normal 4-19 [facility] Comment on above: Performed By: #### L 501.4021, L500.2500, L100.0100 #### [facility] [address] [place], [address] ACT Activated Clotting Timeo n 06-20-2025 ACTk CLOT TIME 179 sec High 74-137 [facility] Comment on above: Performed By: #### L 501.4021, L500.2500, L100.0100 #### [facility] [address] [place], [address] CBC W/Diff, Automatedon 06-09 Absolute Neut Normal 2.0-7.7 [facility] Comment on above: Result Comment: DUPL ICATE- SEE H76 Performed By: #### L 100.0100 #### [facility] [address] [place], [address] HCT Normal 40-54 [facility] Comment on above: Result Comment: DUPL ICATE- SEE H76 Performed By: #### L 100.0100 #### [facility] [address] [place], [address] HGB Normal 13.0-16.5 [facility] Comment on above: Result Comment: DUPL ICATE- SEE H76 Performed By: #### L 100.0100 #### [facility] [address] [place], [address] MCH Normal 27.0-32.0 [facility] Comment on above: Result Comment: DUPL ICATE- SEE H76 Performed By: #### L 100.0100 #### [facility] [address] [place], [address] MCHC Normal 32-36 [facility] Comment on above: Result Comment: DUPL ICATE- SEE H76 Performed By: #### L 100.0100 #### [facility] [address] [place], [address] MCV Normal 80-94 [facility] Comment on above: Result Comment: DUPL ICATE- SEE H76 Performed By: #### L 100.0100 #### [facility] [address] [place], [address] NEUT% Normal 47-70 [facility] Comment on above: Result Comment: DUPL ICATE- SEE H76 Performed By: #### L 100.0100 #### [facility] [address] [place], [address] PLT Normal 150-450 [facility] Comment on above: Result Comment: DUPL ICATE- SEE H76 Performed By: #### L 100.0100 #### [facility] [address] [place], [address] RBC Normal 4.6-6.2 [facility] Comment on above: Result Comment: DUPL ICATE- SEE H76 Performed By: #### L 100.0100 #### [facility] [address] [place], [address] RDW CV Normal 11.6-14.6 [facility] Comment on above: Result Comment: DUPL ICATE- SEE H76 Performed By: #### L 100.0100 #### [facility] [address] [place], [address] RDW SD Normal 35.1-43.9 [facility] Comment on above: Result Comment: DUPL ICATE- SEE H76 Performed By: #### L 100.0100 #### [facility] [address] [place], [address] WBC Normal 4.4-11.0 [facility] Comment on above: Result Comment: DUPL ICATE- SEE H76 Performed By: #### L 100.0100 #### [facility] [address] [place], [address] Absolute Lymph 3.51 X10 3/uL Normal 0.83-4.51 [facility] Comment on above: Performed By: #### L 500.4050, L500.4100, L100.0100 #### [facility] [address] [place], [address] Absolute Neut 4.8 X10 3/uL Normal 2.0-7.7 [facility] Comment on above: Performed By: #### L 500.4050, L500.4100, L100.0100 #### [facility] [address] [place], [address] Basophils/100 WBC (Bld) 1.1 % High 0-1 [facility] Comment on above: Performed By: #### L 500.4050, L500.4100, L100.0100 #### [facility] [address] [place], [address] Eosinophils/100 WBC (Bld) 2.9 % Normal 0-5 [facility] Comment on above: Performed By: #### L 500.4050, L500.4100, L100.0100 #### [facility] [address] [place], [address] Erythrocyte distribution width (RBC) [Ratio] 13.6 % Normal 11.6-14.6 [facility] Comment on above: Performed By: #### L 500.4050, L500.4100, L100.0100 #### [facility] [address] [place], [address] Hematocrit (Bld) [Volume fraction] 41.3 % Normal 40-54 [facility] Comment on above: Performed By: #### L 500.4050, L500.4100, L100.0100 #### [facility] [address] [place], [address] Hemoglobin (Bld) [Mass/Vol] 14.0 g/dL Normal 13.0-16.5 [facility] Comment on above: Performed By: #### L 500.4050, L500.4100, L100.0100 #### [facility] [address] [place], [address] IG% 0.400 Normal 0.0-0.9 [facility] Comment on above: Result Comment: IG% - Immature Granulocytes (promyelocytes, myelocytes and metamyelocytes) > 1% indicates that a LEFT SHIFT is Present. Performed By: #### L 500.4050, L500.4100, L100.0100 #### [facility] [address] [place], [address] Lymphocytes/100 WBC (Bld) 36.9 % Normal 19-41 [facility] Comment on above: Performed By: #### L 500.4050, L500.4100, L100.0100 #### [facility] [address] [place], [address] MCH (RBC) [Entitic mass] 29.2 pg Normal 27.0-32.0 [facility] Comment on above: Performed By: #### L 500.4050, L500.4100, L100.0100 #### [facility] [address] [place], [address] MCHC (RBC) [Mass/Vol] 33.9 g/dL Normal 32-36 [facility] Comment on above: Performed By: #### L 500.4050, L500.4100, L100.0100 #### [facility] [address] [place], [address] MCV (RBC) [Entitic vol] 86.0 fL Normal 80-94 [facility] Comment on above: Performed By: #### L 500.4050, L500.4100, L100.0100 #### [facility] [address] [place], [address] Monocytes/100 WBC (Bld) 8.3 % Normal 0-10 [facility] Comment on above: Performed By: #### L 500.4050, L500.4100, L100.0100 #### [facility] [address] [place], [address] Neutrophils/100 WBC (Bld) 50.4 % Normal 47-70 [facility] Comment on above: Performed By: #### L 500.4050, L500.4100, L100.0100 #### [facility] [address] [place], [address] Nucleated RBC (Bld) [#/Vol] 0 10*3/uL Normal 0-5 [facility] Comment on above: Performed By: #### L 500.4050, L500.4100, L100.0100 #### [facility] [address] [place], [address] Platelet mean volume (Bld) [Entitic vol] 10.0 fL Normal 6.2-12.0 [facility] Comment on above: Performed By: #### L 500.4050, L500.4100, L100.0100 #### [facility] [address] [place], [address] Platelets (Bld) [#/Vol] 211 10*3/uL Normal 150-450 [facility] Comment on above: Performed By: #### L 500.4050, L500.4100, L100.0100 #### [facility] [address] [place], [address] RBC (Bld) [#/Vol] 4.80 10*6/uL Normal 4.6-6.2 [facility] Comment on above: Performed By: #### L 500.4050, L500.4100, L100.0100 #### [facility] [address] [place], [address] RDW SD 42.5 fl Normal 35.1-43.9 [facility] Comment on above: Performed By: #### L 500.4050, L500.4100, L100.0100 #### [facility] [address] [place], [address] WBC (Bld) [#/Vol] 9.5 10*3/uL Normal 4.4-11.0 [facility] Comment on above: Performed By: #### L 500.4050, L500.4100, L100.0100 #### [facility] [address] [place], [address] Comprehensive Metabolic Prof [facility] 06-20-2025 Albumin [Mass/Vol] 3.9 g/dL Normal 3.4-4.8 [facility] Comment on above: Performed By: #### L 500.4050, L500.4100, L100.0100 #### [facility] [address] [place], [address] Albumin/Globulin [Mass ratio] 1.4 {ratio} Normal 0.9-2.4 [facility] Comment on above: Performed By: #### L 500.4050, L500.4100, L100.0100 #### [facility] [address] [place], [address] ALK PHOS 45 U/L Normal 40-129 [facility] Comment on above: Performed By: #### L 500.4050, L500.4100, L100.0100 #### [facility] [address] [place], [address] ALT [Catalytic activity/Vol] 37 U/L Normal <=46 [facility] Comment on above: Performed By: #### L 500.4050, L500.4100, L100.0100 #### [facility] [address] [place], [address] AST [Catalytic activity/Vol] 48 U/L High <=37 [facility] Comment on above: Performed By: #### L 500.4050, L500.4100, L100.0100 #### [facility] [address] [place], [address] Bilirubin [Mass/Vol] 0.49 mg/dL Normal 0.00-1.30 [facility] Comment on above: Performed By: #### L 500.4050, L500.4100, L100.0100 #### [facility] [address] [place], [address] BUN/CRE 8.7 RATIO Low 10-20 [facility] Comment on above: Performed By: #### L 500.4050, L500.4100, L100.0100 #### [facility] [address] [place], [address] Calcium [Mass/Vol] 8.9 mg/dL Normal 7.6-11.0 [facility] Comment on above: Performed By: #### L 500.4050, L500.4100, L100.0100 #### [facility] [address] [place], [address] Chloride [Moles/Vol] 105 mmol/L Normal 98-108 [facility] Comment on above: Performed By: #### L 500.4050, L500.4100, L100.0100 #### [facility] [address] [place], [address] CO2 [Moles/Vol] 22.1 mmol/L Normal 21.0-32.0 [facility] Comment on above: Performed By: #### L 500.4050, L500.4100, L100.0100 #### [facility] [address] [place], [address] Creatinine [Mass/Vol] 1.42 mg/dL High 0.70-1.20 [facility] Comment on above: Performed By: #### L 500.4050, L500.4100, L100.0100 #### [facility] [address] [place], [address] ECRCL 50.06 ml/min Normal 50-250 [facility] Comment on above: Performed By: #### L 500.4050, L500.4100, L100.0100 #### [facility] [address] [place], [address] GAP 13 Normal 5-15 [facility] Comment on above: Performed By: #### L 500.4050, L500.4100, L100.0100 #### [facility] [address] [place], [address] GFR/1.73 sq M.predicted among non-blacks MDRD (S/P/Bld) [Vol rate/Area] 53 mL/min/{1.73_m2} Low >60 [facility] Comment on above: Result Comment: mL/m in/1.73m2 CKD-EPI Creatinine Equation (2020) Performed By: #### L 500.4050, L500.4100, L100.0100 #### [facility] [address] [place], [address] Globulin (S) [Mass/Vol] 2.8 g/dL Normal 2.2-4.2 [facility] Comment on above: Performed By: #### L 500.4050, L500.4100, L100.0100 #### [facility] [address] [place], [address] Glucose [Mass/Vol] 114 mg/dL High 70-99 [facility] Comment on above: Performed By: #### L 500.4050, L500.4100, L100.0100 #### [facility] [address] [place], [address] Potassium [Moles/Vol] 4.0 mmol/L Normal 3.3-5.1 [facility] Comment on above: Performed By: #### L 500.4050, L500.4100, L100.0100 #### [facility] [address] [place], [address] Sodium [Moles/Vol] 140 mmol/L Normal 133-145 [facility] Comment on above: Performed By: #### L 500.4050, L500.4100, L100.0100 #### [facility] [address] [place], [address] T PROT 6.7 g/dL Normal 5.9-8.4 [facility] Comment on above: Performed By: #### L 500.4050, L500.4100, L100.0100 #### [facility] [address] [place], [address] Urea nitrogen [Mass/Vol] 12 mg/dL Normal 4-19 [facility] Comment on above: Performed By: #### L 500.4050, L500.4100, L100.0100 #### [facility] [address] [place], [address] Consultation - Cardiologyon 06-20-2025 Consultation - Cardiology [facility] Medical Records Department [address] [place] [address] Consultation - Cardiology 06/20/25 0754 MR#: [id number] Acct: [id number] Name: CARLI LOWE Rep #: [id number] : 1950 74 From: Nick Paige MD PCP: Dr. Clem Stanley MD Status:ADM IN Location: [place] [address] Assessment Plan Assessment/Plan (1) Non-ST elevation ME (NSTEMI): PLAN: Patient's accelerating chest symptoms, elevated enzymes, risk factor profile, and ECG that evolved ST segment changes are highly suggestive of an acute coronary syndrome. I would recommend the patient undergo a left heart catheterization. The procedure risk/benefit and alternatives were explained to the patient in detail he voiced understanding and agrees to proceed. This will be scheduled for later today. I also went over the potential outcomes of the catheterization including stenting and/or other revascularization as well as medical therapy. (2) Hypertension: QUALIFIERS: Hypertension type: primary hypertension Qualified Code(s): I10 - Essential (primary) hypertension PLAN: Historically the patient has treated his blood pressure with herbal supplements. His blood pressure upon arrival in the emergency department was 200 systolic. He is now down to 152. He is currently on carvedilol 3.125 mg twice daily and we will add lisinopril 10 mg twice daily due to his hyperglycemia and mild renal insufficiency for renal protection. The patient would also be a candidate for potential Farxiga therapy for renal protection. I will defer this to the primary service. (3) Chronic kidney disease (CKD), stage III (moderate): QUALIFIERS: Chronic kidney disease stage 3 subtype: stage 3a (GFR 45-59) Qualified Code(s): N18.31 - Chronic kidney disease, stage 3a PLAN: Patient's BUN and creatinine was 12/1.42 today. Chronically he is around 1.3???1.5 for his creatinine. This gives him a GFR of 53. I would recommend considering adding Farxiga given his elevated fasting blood sugar, hypertension, and chronic renal insufficiency. Will defer to the primary service for long-term management. (4) Hyperlipidemia: QUALIFIERS: Hyperlipidemia type: mixed hyperlipidemia Qualified Code(s): E78.2 - Mixed hyperlipidemia PLAN: Patient's lipids showed a total cholesterol of 206 triglycerides of 452, LDL of 94, and HDL of 37. Given the patient's presentation consistent with an acute coronary syndrome and his fasting lipid profile along with strong family history of coronary disease I recommend he be treated with intensive statin therapy. He has been started on atorvastatin 40 mg daily. His labs should be reevaluated fasting lipids and liver functions in 6 weeks. He did have a minimal elevation of his AST to 48. (5) Fasting hyperglycemia: PLAN: Fasting blood sugars at 114. The patient is obese with truncal obesity. Hemoglobin A1c should be checked and aggressive therapy instituted as tolerated. PLAN: Plan 1. Will add lisinopril 10 mg twice daily to the patient's medical regimen. 2. Continue Coreg 3.125 mg twice daily and titrate to blood pressure and heart rate response. 3. Recommend the patient undergo a left heart catheterization this morning. 4. Dr. Hurtado to perform the cath. 5. Further recommendations pending the outcome of the catheterization. HPI Consult Data Date of Consult: 06/20/25 HPI Narrative Reason for Consultation: Chest pain with elevated enzymes. HPI Narrative: CARLI LOWE, is a 74 M who presents with about a 1 week history of some dyspnea on exertion and upper back discomfort that resolves with rest. It could occur with activity also at rest over the last 24 hours. Prior to admission the patient was brought to the hospital because of the chest discomfort and upper back discomfort radiating to both biceps as an aching sensation. On initial presentation in the ER the patient's blood pressure was 200 systolic. It is slowly come down to around to 150 systolic. ECG in the emergency room showed normal sinus rhythm at 92 bpm there was diffuse ST segment depression in V3 through V6 in 1 and aVL. The subsequent ECG when the patient was pain-free showed resolved ST segment changes and what is a possible old inferior wall infarct. The patient does not have any prior history of cardiac event. He does have a family history of coronary disease, he is hyperlipidemic, hypertensive, he is a remote smoker quit smoking 50 years ago. His fasting blood sugars are elevated in the hospital but he has no prior history of diabetes. The patient does have truncal obesity. Currently the patient is pain-free his enzymes were positive peaking at 227 on the 4-hour troponin. Currently the patient is pain-free resting comfortably in recumbent position in bed. 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 The pa (more content not included)... Normal [facility] Echo Completeon 06-20-2025 Echo Complete [facility] [address] [place] [address] Echo Complete 06/20/25 0814 MR#: [id number] Acct: [id number] Name: CARLI LOWE Rep #: [id number] : 1950 74 From: Horace Alexis MD Attending Dr: Dr. Jerome Agustin MD Status : ADM IN Ordering Dr: Amelia Watt MD Date: 06/20/25 Location: [facility] Sex: M C Admitted: 06/19/25 Reason For Study Reason For Study: NSTEMI Procedure This was a 2D Doppler, Color Flow transthoracic echocardiogram. Exam performed portable in patient room. Left Ventricle Normal size and thickness. Moderate posterior and inferior hypokinesis. Estimated LVEF 55%. Stage I diastolic dysfunction. Right Ventricle Normal right ventricle. Atria The left and right atria are normal. Mitral Valve Mild (1+) mitral valve insufficiency. Tricuspid Valve Normal tricuspid valve. Aortic Valve Trisinus/trileaflet aortic valve. Trivial aortic valve insufficiency. Pulmonic Valve Trivial pulmonic valve insufficiency. Great Vessels Normal sized aortic root. Pericardium/Pleural No pericardial effusion. MMode/2D Measurements Calculations LVIDd: 4.2 cm IVSd: 1.1 cm LVOT diam: 2.1 cm LVIDs: 2.8 cm LVPWd: 1.0 cm LVOT area: 3.5 cm2 RVDd: 3.5 cm FS: 34.3 % asc Aorta Diam: 3.6 cm LAV(MOD-bp): 37.2 ml LVAd ap4: 24.7 cm2 LAV(MOD-bp) Indexed: 18.6 ml/m2 LVLd ap4: 8.0 cm LAV(MOD-sp2): 37.1 ml EDV(MOD-sp4): 63.8 ml LAV(MOD-sp4): 33.3 ml EDV(sp4-el): 64.2 ml LVAs ap4: 15.2 cm2 LVLs ap4: 6.7 cm ESV(MOD-sp4): 29.1 ml ESV(sp4-el): 29.3 ml EF(MOD-sp4): 54.4 % EF(sp4-el): 54.3 % LVAd ap2: 23.7 cm2 SV(MOD-sp4): 34.7 ml SV(MOD-sp2): 33.2 ml LVLd ap2: 7.6 cm SI(MOD-sp4): 17.3 ml/m2 SI(MOD-sp2): 16.6 ml/m2 EDV(MOD-sp2): 61.9 ml EDV(sp2-el): 62.2 ml LVAs ap2: 14.8 cm2 LVLs ap2: 6.7 cm ESV(MOD-sp2): 28.7 ml ESV(sp2-el): 27.8 ml EF(MOD-sp2): 53.6 % SV(sp4-el): 34.9 ml Ao sinus diam: 3.5 cm LA A4 area: 14.8 cm2 LA dimension(2D): 3.7 cm RA A4 area: 12.7 cm2 TAPSE: 2.0 cm Time Measurements MV dec time: 0.24 sec Doppler Measurements Calculations MV E max sergey: 52.0 cm/sec Lat Peak E' Sergey: 11.7 cm/sec Med Peak E' Sergey: 7.3 cm/sec MV A max sergey: 83.2 cm/sec E/E' lat: 4.4 E/E' med: 7.2 MV E/A: 0.63 Ao V2 max: 107.7 cm/sec LV V1 max: 93.2 cm/sec MV dec slope: 221.2 cm/sec2 Ao max P.6 mmHg LV V1 max P.5 mmHg Ao V2 mean: 71.8 cm/sec LV V1 mean P.1 mmHg Ao mean P.4 mmHg LV V1 mean: 68.4 cm/sec Ao V2 VTI: 22.9 cm LV V1 VTI: 22.1 cm AV (velocity ratio): 0.96 JAYSHREE(I,D): 3.4 cm2 JAYSHREE(V,D): 3.1 cm2 SV(LVOT): 78.1 ml PA V2 max: 104.7 cm/sec ECHO/Echo Complete Interpretation Summary Moderate posterior and inferior hypokinesis. Estimated LVEF 55%. Stage I diastolic dysfunction. Ordering Physician: Amelia Watt Referring Physician: Clem Stanley MD Performed By: Mae Arrieta RDCS 06/20/25 1000 Date Horcae Alexis MD CC: Dr. Amelia Watt MD; Dr. Clem Stanley MD; Dr. Jerome Agustin MD Date Dictated: 06/20/25 0814 Date Transcribed: 06/20/25 1000 Tile Setter Apprentice: Signed Normal [facility] Lipid Profileon 06-20-2025 CHOL:HDL 5.63 Normal [facility] Comment on above: Performed By: #### L 500.4050, L500.4100, L100.0100 #### [facility] [address] [place], [address] Cholesterol [Mass/Vol] 206 mg/dL High <=200 [facility] Comment on above: Result Comment: Chol esterol level, Desirable <200 mg/dL Borderline high cholesterol 200-239 mg/dL High cholesterol >=240 mg/dL Recommendations of the NCEP Adult Treatment Panel for the following risk-cutoff thresholds for the [place] population. Performed By: #### L 500.4050, L500.4100, L100.0100 #### [facility] [address] [place], [address] Cholesterol in HDL [Mass/Vol] 37 mg/dL Low [facility] Comment on above: Result Comment: Carla onal Cholesterol Education Program (NCEP) guidelines: <40 mg/dL: Low HDL-cholesterol (major risk factor for CHD) >= 60 mg/dL: High HDL-cholesterol (negative risk factor for CHD) HDL-cholesterol is affected by a number of factors, e.g. smoking, exercise, hormones, sex and age. Performed By: #### L 500.4050, L500.4100, L100.0100 #### [facility] [address] [place], [address] Cholesterol in LDL [Mass/Vol] 94 mg/dL Normal [facility] Comment on above: Result Comment: Bord wdsryn=525-032 mg/dL Higher Vbco=894 mg/dL or greater Longoria Equation 2020 for LDL-C Performed By: #### L 500.4050, L500.4100, L100.0100 #### [facility] [address] [place], [address] Cholesterol in VLDL [Mass/Vol] 90 mg/dL High 5-40 [facility] Comment on above: Performed By: #### L 500.4050, L500.4100, L100.0100 #### [facility] [address] [place], [address] Triglyceride [Mass/Vol] 452 mg/dL High [facility] Comment on above: Result Comment: The drugs N-Acetylcysteine and Metamizole may falsely depress this assay. Normal range: <150 mg/dL Borderline High: 150-199 mg/dL High: 200-499 mg/dL Very High: >500 mg/dL Performed By: #### L 500.4050, L500.4100, L100.0100 #### [facility] [address] [place], [address] Partial Thromboplast Timeon 06-20-2025 aPTT Coag (Bld) [Time] 37.1 s High 24.1-36.2 [facility] Comment on above: Performed By: #### L 501.4021, L500.2500, L100.0100 #### [facility] [address] [place], [address] aPTT Coag (Bld) [Time] 88.2 s High 24.1-36.2 [facility] Comment on above: Performed By: #### L 300.4310 #### [facility] [address] [place], [address] Troponin T HS 4 HRon 025 Trop T High Sen 227 ng/L Invalid Interpretation Code <=22 [facility] Comment on above: Result Comment: Crit ical Result(s) Called at:0226 by:??GEORGINA MASTERSON TO LILIBETH MERINO Results read back by same. Performed By: #### L 501.4021, L500.2500, L100.0100 #### [facility] [address] [place], [address] 12 Lead EKGon 06-19-2025 12 Lead EKG [facility] [address] [place] [address] 12 Lead EKG 06/20/25 0000 MR#: [id number] Acct: [id number] Name: CARLI LOWE Rep #: [id number] : 1950 74 From: Nick Paige MD Attending Dr: Dr. Jerome Agustin MD Status : ADM IN Ordering Dr: Amelia Watt MD Date: 06/19/25 Location: U Sex: M C Admitted: 06/19/25 Test Reason : CP ADMIT/HEART CATH IN AM Blood Pressure : */* mmHG Vent. Rate : 65 BPM Atrial Rate : 65 BPM P-R Int : 196 ms QRS Dur : 76 ms QT Int : 414 ms P-R-T Axes : 73 31 81 degrees QTcB Int : 430 ms Normal sinus rhythm Cannot rule out Inferior infarct , age undetermined Abnormal ECG When compared with ECG of 19-Jun-2025 20:40, MANUAL COMPARISON REQUIRED DATA IS UNCONFIRMED Confirmed by Nick Paige ([id number]), publications editor ANAT MURCIA ([id number]) on 06/20/2025 8:36:18 AM Referred By: Confirmed By: Nick Paige 06/20/25 0836 Date Nick Paige MD CC: Dr. Amelia Watt MD; Dr. Clem Stanley MD; Dr. Jerome Agustin MD Signed Normal [facility] 12 Lead EKG [facility] Cardi[facility] Services [address] [place] [address] 12 Lead EKG 06/19/25 2040 MR#: [id number] Acct: [id number] Name: CARLI LOWE Rep #: [id number] : 1950 74 From: Nick Paige MD Attending Dr: Dr. Jerome Agustin MD Status : ADM IN Ordering Dr: Giovanny Ventura DO Date: 06/19/25 Location: [facility] Sex: M C Admitted: 06/19/25 Test Reason : CP Blood Pressure : */* mmHG Vent. Rate : 92 BPM Atrial Rate : 92 BPM P-R Int : 176 ms QRS Dur : 78 ms QT Int : 376 ms P-R-T Axes : 82 69 109 degrees QTcB Int : 464 ms Normal sinus rhythm Marked ST abnormality, possible anterolateral subendocardial injury Abnormal ECG Confirmed by Nick Paige ([id number]), publications editor ANAT MURCIA ([id number]) on 06/20/2025 10:35:47 AM Referred By: ER Confirmed By: Nick Paige 06/20/25 1035 Date Nick Paige MD CC: Dr. Clem Stanley MD; Dr. Jerome Agustin MD; Dr. Giovanny Ventura DO Signed Normal [facility] Basic Metabolic Profile (BMP )on 06-19-2025 BUN/CRE 9.0 RATIO Low 10-20 [facility] Comment on above: Performed By: #### L 501.4021, L500.2500, L100.0100 #### [facility] [address] [place], [address] Calcium [Mass/Vol] 9.5 mg/dL Normal 7.6-11.0 [facility] Comment on above: Performed By: #### L 501.4021, L500.2500, L100.0100 #### [facility] [address] [place], [address] Chloride [Moles/Vol] 104 mmol/L Normal 98-108 [facility] Comment on above: Performed By: #### L 501.4021, L500.2500, L100.0100 #### [facility] [address] [place], [address] CO2 [Moles/Vol] 23.4 mmol/L Normal 21.0-32.0 [facility] Comment on above: Performed By: #### L 501.4021, L500.2500, L100.0100 #### [facility] [address] [place], [address] Creatinine [Mass/Vol] 1.55 mg/dL High 0.70-1.20 [facility] Comment on above: Performed By: #### L 501.4021, L500.2500, L100.0100 #### [facility] [address] [place], [address] ECRCL 47.82 ml/min Low 50-250 [facility] Comment on above: Performed By: #### L 501.4021, L500.2500, L100.0100 #### [facility] [address] [place], [address] GAP 12 Normal 5-15 [facility] Comment on above: Performed By: #### L 501.4021, L500.2500, L100.0100 #### [facility] [address] [place], [address] GFR/1.73 sq M.predicted among non-blacks MDRD (S/P/Bld) [Vol rate/Area] 47 mL/min/{1.73_m2} Low >60 [facility] Comment on above: Result Comment: mL/m in/1.73m2 CKD-EPI Creatinine Equation (2020) Performed By: #### L 501.4021, L500.2500, L100.0100 #### [facility] [address] [place], [address] Glucose [Mass/Vol] 117 mg/dL High 70-99 [facility] Comment on above: Performed By: #### L 501.4021, L500.2500, L100.0100 #### [facility] [address] [place], [address] Potassium [Moles/Vol] 4.0 mmol/L Normal 3.3-5.1 [facility] Comment on above: Performed By: #### L 501.4021, L500.2500, L100.0100 #### [facility] [address] [place], [address] Sodium [Moles/Vol] 139 mmol/L Normal 133-145 [facility] Comment on above: Performed By: #### L 501.4021, L500.2500, L100.0100 #### [facility] [address] [place], [address] Urea nitrogen [Mass/Vol] 14 mg/dL Normal 4-19 [facility] Comment on above: Performed By: #### L 501.4021, L500.2500, L100.0100 #### [facility] [address] [place], [address] CBC W/Diff, Automatedon 11- Absolute Neut Normal 2.0-7.7 [facility] Comment on above: Order Comment: Comme nts: If not done in prior 24 hours Result Comment: DUPL ICATE ORDER Performed By: #### L 501.4021, L500.2500, L100.0100 #### [facility] [address] [place], [address] HCT Normal 40-54 [facility] Comment on above: Order Comment: Comme nts: If not done in prior 24 hours Result Comment: DUPL ICATE ORDER Performed By: #### L 501.4021, L500.2500, L100.0100 #### [facility] [address] [place], [address] HGB Normal 13.0-16.5 [facility] Comment on above: Order Comment: Comme nts: If not done in prior 24 hours Result Comment: DUPL ICATE ORDER Performed By: #### L 501.4021, L500.2500, L100.0100 #### [facility] [address] [place], [address] MCH Normal 27.0-32.0 [facility] Comment on above: Order Comment: Comme nts: If not done in prior 24 hours Result Comment: DUPL ICATE ORDER Performed By: #### L 501.4021, L500.2500, L100.0100 #### [facility] [address] [place], [address] MCHC Normal 32-36 [facility] Comment on above: Order Comment: Comme nts: If not done in prior 24 hours Result Comment: DUPL ICATE ORDER Performed By: #### L 501.4021, L500.2500, L100.0100 #### [facility] [address] [place], [address] MCV Normal 80-94 [facility] Comment on above: Order Comment: Comme nts: If not done in prior 24 hours Result Comment: DUPL ICATE ORDER Performed By: #### L 501.4021, L500.2500, L100.0100 #### [facility] [address] [place], [address] NEUT% Normal 47-70 [facility] Comment on above: Order Comment: Comme nts: If not done in prior 24 hours Result Comment: DUPL ICATE ORDER Performed By: #### L 501.4021, L500.2500, L100.0100 #### [facility] [address] [place], [address] PLT Normal 150-450 [facility] Comment on above: Order Comment: Comme nts: If not done in prior 24 hours Result Comment: DUPL ICATE ORDER Performed By: #### L 501.4021, L500.2500, L100.0100 #### [facility] [address] [place], [address] RBC Normal 4.6-6.2 [facility] Comment on above: Order Comment: Comme nts: If not done in prior 24 hours Result Comment: DUPL ICATE ORDER Performed By: #### L 501.4021, L500.2500, L100.0100 #### [facility] [address] [place], [address] RDW CV Normal 11.6-14.6 [facility] Comment on above: Order Comment: Comme nts: If not done in prior 24 hours Result Comment: DUPL ICATE ORDER Performed By: #### L 501.4021, L500.2500, L100.0100 #### [facility] [address] [place], [address] RDW SD Normal 35.1-43.9 [facility] Comment on above: Order Comment: Comme nts: If not done in prior 24 hours Result Comment: DUPL ICATE ORDER Performed By: #### L 501.4021, L500.2500, L100.0100 #### [facility] [address] [place], [address] WBC Normal 4.4-11.0 [facility] Comment on above: Order Comment: Comme nts: If not done in prior 24 hours Result Comment: DUPL ICATE ORDER Performed By: #### L 501.4021, L500.2500, L100.0100 #### [facility] [address] [place], [address] Absolute Lymph 3.07 X10 3/uL Normal 0.83-4.51 [facility] Comment on above: Performed By: #### L 501.4021, L500.2500, L100.0100 #### [facility] [address] [place], [address] Absolute Neut 4.7 X10 3/uL Normal 2.0-7.7 [facility] Comment on above: Performed By: #### L 501.4021, L500.2500, L100.0100 #### [facility] [address] [place], [address] Basophils/100 WBC (Bld) 0.7 % Normal 0-1 [facility] Comment on above: Performed By: #### L 501.4021, L500.2500, L100.0100 #### [facility] [address] [place], [address] Eosinophils/100 WBC (Bld) 2.1 % Normal 0-5 [facility] Comment on above: Performed By: #### L 501.4021, L500.2500, L100.0100 #### [facility] [address] [place], [address] Erythrocyte distribution width (RBC) [Ratio] 13.5 % Normal 11.6-14.6 [facility] Comment on above: Performed By: #### L 501.4021, L500.2500, L100.0100 #### [facility] [address] [place], [address] Hematocrit (Bld) [Volume fraction] 44.5 % Normal 40-54 [facility] Comment on above: Performed By: #### L 501.4021, L500.2500, L100.0100 #### [facility] [address] [place], [address] Hemoglobin (Bld) [Mass/Vol] 15.1 g/dL Normal 13.0-16.5 [facility] Comment on above: Performed By: #### L 501.4021, L500.2500, L100.0100 #### [facility] [address] [place], [address] IG% 0.300 Normal 0.0-0.9 [facility] Comment on above: Result Comment: IG% - Immature Granulocytes (promyelocytes, myelocytes and metamyelocytes) > 1% indicates that a LEFT SHIFT is Present. Performed By: #### L 501.4021, L500.2500, L100.0100 #### [facility] [address] [place], [address] Lymphocytes/100 WBC (Bld) 35.5 % Normal 19-41 [facility] Comment on above: Performed By: #### L 501.4021, L500.2500, L100.0100 #### [facility] [address] [place], [address] MCH (RBC) [Entitic mass] 29.0 pg Normal 27.0-32.0 [facility] Comment on above: Performed By: #### L 501.4021, L500.2500, L100.0100 #### [facility] [address] [place], [address] MCHC (RBC) [Mass/Vol] 33.9 g/dL Normal 32-36 [facility] Comment on above: Performed By: #### L 501.4021, L500.2500, L100.0100 #### [facility] [address] [place], [address] MCV (RBC) [Entitic vol] 85.4 fL Normal 80-94 [facility] Comment on above: Performed By: #### L 501.4021, L500.2500, L100.0100 #### [facility] [address] [place], [address] Monocytes/100 WBC (Bld) 7.4 % Normal 0-10 [facility] Comment on above: Performed By: #### L 501.4021, L500.2500, L100.0100 #### [facility] [address] [place], [address] Neutrophils/100 WBC (Bld) 54.0 % Normal 47-70 [facility] Comment on above: Performed By: #### L 501.4021, L500.2500, L100.0100 #### [facility] [address] [place], [address] Nucleated RBC (Bld) [#/Vol] 0 10*3/uL Normal 0-5 [facility] Comment on above: Performed By: #### L 501.4021, L500.2500, L100.0100 #### [facility] [address] [place], [address] Platelet mean volume (Bld) [Entitic vol] 10.1 fL Normal 6.2-12.0 [facility] Comment on above: Performed By: #### L 501.4021, L500.2500, L100.0100 #### [facility] [address] [place], [address] Platelets (Bld) [#/Vol] 243 10*3/uL Normal 150-450 [facility] Comment on above: Performed By: #### L 501.4021, L500.2500, L100.0100 #### [facility] [address] [place], [address] RBC (Bld) [#/Vol] 5.21 10*6/uL Normal 4.6-6.2 [facility] Comment on above: Performed By: #### L 501.4021, L500.2500, L100.0100 #### [facility] [address] [place], [address] RDW SD 42.0 fl Normal 35.1-43.9 [facility] Comment on above: Performed By: #### L 501.4021, L500.2500, L100.0100 #### [facility] [address] [place], [address] WBC (Bld) [#/Vol] 8.6 10*3/uL Normal 4.4-11.0 [facility] Comment on above: Performed By: #### L 501.4021, L500.2500, L100.0100 #### [facility] [address] [place], [address] Chest 1 View (Portable)on Chest 1 View (Portable) [facility] Imaging Services [address] [place] [address] Chest 1 View (Portable) MR#: [id number] Acct: [id number] Name: CARLI LOWE Rep #: [id number] : 1950 M 74 From: Guerita Alatorre PCP: Dr. Clem Stanley MD Status: [facility] ER Study: Chest 1 View (Portable) Date of Exam: 06/19/25 Exam# [id number] Ordering Dr: Giovanny Ventura DO PROCEDURE: CHEST 1 VIEW (PORTABLE) 06/19/2025 REASON FOR EXAM: CHEST PAIN TECHNIQUE: Frontal view of the chest. COMPARISON: none FINDINGS: No focal consolidation. Mild pulmonary vascular congestion. No pleural effusion or pneumothorax. Cardiac silhouette is within normal limits. Bilateral lower thoracic rib fractures not excluded. RAD/Chest 1 View (Portable) IMPRESSION: No focal consolidation. Mild pulmonary vascular congestion. Bilateral lower thoracic rib fractures not excluded. Reading Location: [facility] CC: Dr. Clem Stanley MD; Dr. Giovanny Ventura DO Tile Setter Apprentice: Signed Normal [facility] D-Dimer Quantitative (DVT/PE )on 06-19-2025 D-DIMER QUANT < 0.27 Low 0.27-0.49 [facility] Comment on above: Result Comment: NORM AL D-Dimer level (<0.50) indicates no DVT or PE. Performed By: #### L 300.8000 #### [facility] [address] [place] [place], [address] Emergency Department Summary on 06-19-2025 Emergency Department Summary [facility] Medical Records Department [address] [place] [address] Emergency Department Summary 06/19/25 MR#: [id number] Acct: [id number] Name: CARLI LOWE Rep #: [id number] : 1950 74 From: Giovanny Ventura DO PCP: Dr. Clem Stanley MD Status:ADM IN Location: [address] History of Present Illness Chief Complaint: Chest Pain Detail of Chief Complaint: Chest pain Informant: patient Narrative Narrative: Patient presents with chest pain intermittently for at least a week. It can last up to 30 minutes at a time. At times he will have discomfort into his arms and biceps and forearms. Pain also will radiate through to his back. He feels somewhat short of breath with it. Does not necessarily seem to be brought on by exertion. He had recent travel to [place] earlier in the month by vehicle which was about 8 hours. No history of PE or DVT. No prior cardiac history. He does have history of hypertension but is on an herbal medicine. [facility] Medical History (Updated 06/19/25 @ 22:[address] Giovanny Ventura, DO) Hypertension Macular degeneration Home Medications ???Medication ???Instructions ???Recorded ???Last Taken ???Type aspirin 81 mg capsule 81 mg PO DAILY 06/19/25 Unknown Hi story Allergy/AdvReac Type Severity Reaction Status Date / Time No Known Allergies Allergy Verified 06/19/25 20:33 Family History no significant family his Surgical History (Updated 06/19/25 @ 20:48 by Saul Etienne) Hx of tonsillectomy Hx of appendectomy ROS ROS ED Review of Systems ROS Unobtainable: other Constitutional Constitutional ED: Reports lethargy; Denies chills, fever(s), sweats or weight loss Eyes Eyes: Denies blurry vision, change in vision or diplopia ENT ENT ED: Denies rhinorrhea or sore throat Cardiovascular Cardiovascular: Reports chest pain; Denies orthopnea or racing heartbeat Respiratory/Chest Respiratory/Chest: Denies cough, dyspnea, dyspnea on exertion, orthopnea or sputum Gastrointestinal Gastrointestinal: Denies abdominal pain, diarrhea, nausea or vomiting Genitourinary Genitourinary ED: Denies dysuria, hematuria or urinary frequency Musculoskeletal Musculoskeletal: Denies arthralgias, back pain, myalgias or neck pain Integumentary Denies abscess, Abrasions or rash Neurologic Neurologic: Denies headache(s) or weakness Psychiatric Psychiatric: Denies anxiety, depression or suicidal thoughts Endocrine Endocrinology: Denies polydipsia, polyphagia or polyuria Hematologic/Lymphatic Hematologic/Lymphatic: Denies easy bleeding, easy bruising or lymphadenopathy Allergic/Immunologic Allergic/Immunologic ED: Denies mouth swelling, tongue swelling or urticaria EXAM Physical Exam Const Vital Signs: 06/19/25 20:30 06/19/25 20:47 06/19/25 20:50 Temperature 98.2 F Temperature Source Oral Pulse Rate 88 Respiratory Rate 18 Respiratory Effort Normal Blood Pressure 200/89 H Blood Pressure Mean 126 Pulse Ox 99 Oxygen Delivery Method Room Air Room Air 06/19/25 20:58 06/19/25 21:30 Temperature Temperature Source Pulse Rate 82 71 Respiratory Rate 16 Respiratory Effort Blood Pressure 176/97 H 159/86 H Blood Pressure Mean 110 Pulse Ox 96 Oxygen Delivery Method Room Air Positive well nourished and well developed General Appearance ED: well developed and NAD HEENT Reports TM's clear and moist mucous membranes normocephalic and atraumatic; Negative for trauma or tenderness Tympanic Membrane ED: Yes TM's clear Eyes PERRL and EOMs intact bilaterally General Eye ED: Negative for pale conjunctiva or scleral icterus Neck no lymphadenopathy, supple and no JVD General: Negative for tenderness Chest Wall inspection of chest normal and palpation of chest normal Chest: Negative for tenderness Resp normal respiratory effort and clear to auscultation bilaterally Effort and Inspection: Negative for respiratory distress or pain with movement Auscultation: Negative for rhonchi, wheezes or diminished lung sounds Cardio regular rate, regular rhythm, S1 normal heart sound, S2 normal heart sound and no murmurs Peripheral Pulses: pulses 2+ throughout GI normal to inspection, nondistended, normoactive bowel sounds, soft to palpation, non-tender, non- distended and no masses Back/Spine no CVA tenderness and no thoracic nor lumbar tenderness Extremity normal to inspection General Extremety ED: Negative for edema General Extremity: Negative for edema Neuro oriented x3, CN's II-XII intact bilaterally, no sensory deficits noted and gait normal Sensorium / Orientation: awake, alert, oriented to person, oriented to place and oriented to time Motor Exam: strength 5/5 throughout and strength abnormal Psych mental status grossl (more content not included)... Normal [facility] H AND P Exam - [facility] 06-19-2025 H&P Exam - Hospitalist [facility] Medical Records Department [address] [place] [address] H P Exam - Hospitalist 06/19/25 2207 MR#: [id number] Acct: [id number] Name: CARLI LOWE Rep #: [id number] : 1950 74 From: Amelia Watt MD PCP: Dr. 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/ PMHx: HTN (White Coat HTN), Macular degeneration, Obesity, CKD stage III unclear subtype or GFR trending who presents to the [facility] ED on 06/19/2025 with history of intermittent chest discomfort ongoing for the last week lasting up to 30 minutes at a time with midsternal discomfort with radiation into bilateral arms and toward his back with mild dyspnea in addition occurring at rest and with exertion with recent history of travel to [place] earlier in the month by vehicle but no specific report of pain to the legs or swelling but given ongoing discomfort prompted ED evaluation. He notes he is on herbal medication for his high blood pressure. He denies any diaphoresis or nausea or emesis. He does state that when his chest discomfort is at its worst it is rated 5 out of 10 in severity and is a dull aching sensation. Workup in the ED included T98.2, heart rate 88, BP initially 289, respiratory rate 18, 99% room air with most recent repeat vitals heart rate 71, BP 159/86, respiratory rate 16, 96% on room air, CBC with WC 8.6, hemoglobin 15.1, platelet 243 without marked shift, D-dimer pending upon request evaluation of patient, BUN/creatinine 14/1.55, GFR 47, glucose 117, troponin 139, chest x-ray with no focal consolidations, mild pulmonary vascular congestion, bilateral lower thoracic rib fractures unable to be excluded, EKG with diffuse ST depression. In the ED patient administered maintenance IV fluids, full-strength aspirin therapy, heparin bolus and drip as well as topical transdermal nitroglycerin. ED physician discussed case with Dr. Paige Census Enumerator. [facility] Medical History Obesity Chronic kidney disease (CKD), stage III (moderate) Hypertension Macular degeneration Home Medications ???Medication ???Instructions ???Recorded ???Last Taken ???Type aspirin 81 mg capsule 81 mg PO DAILY 06/19/25 Unknown Hi story Allergy/AdvReac Type Severity Reaction Status Date / Time No Known Allergies Allergy Verified 06/19/25 20:33 Family History (Updated 06/19/25 @ 22:[address] Amelia Watt MD) Mother CAD (coronary artery disease) Heart disease Hypertension Father Hypertension Colon cancer Dx in his 70s. Family History no significant family his Surgical History Hx of tonsillectomy Hx of appendectomy Social History (Updated 06/19/25 @ 22:[address] Amelia Watt MD) household members: spouse Smoking Status: Former smoker how long ago did patient quit smoking: Smoked remotely in high school, short term. alcohol intake: current alcohol intake frequency: holidays/special occasions only substance use type: does not use ROS ROS Narrative Admission Review of Systems: CONSTITUTIONAL: No weight loss, fever, chills, + weakness or fatigue. HEENT: Eyes: No visual loss, blurred vision, double vision or yellow sclerae. Ears, Nose, Throat: No hearing loss, sneezing, congestion, runny nose or sore throat. SKIN: No rash or itching, lesions, wounds. CARDIOVASCULAR:+ Chest pain. No palpitations, edema, orthopnea, syncopal events. RESPIRATORY: + Dyspnea. No cough or sputum, wheezing, hemoptysis. GASTROINTESTINAL: No anorexia, nausea, vomiting or diarrhea, abdominal pain, melena, BRBPR. GENITOURINARY: No dysuria, frequency, urgency or retention. NEUROLOGICAL: No headache, dizziness, syncope, paralysis, ataxia, numbness or tingling in the extremities, focal weakness, change in bowel or bladder control, seizure. MUSCULOSKELETAL: + muscle, back pain, joint pain or stiffness. HEMATOLOGIC: No anemia, bleeding or bruising. LYMPHATICS: No enlarged nodes. No history of splenectomy. PSYCHIATRIC: No history of depression or anxiety. ENDOCRINOLOGIC: No reports of sweating, cold or heat intolerance. No polyuria or polydipsia. ALLERGIES: No history of asthma, hives, eczema or rhinitis. Vital Signs Vital Signs Vital Signs: 06/19/25 20:30 06/19/25 20:47 06/19/25 20:50 Temperature 98.2 F Temperature Source Oral Pulse Rate 88 Respiratory Rate 18 Respiratory Effort Normal Blood Pressure 200/89 H Blood Pressure Mean 126 Pulse Ox 99 Oxygen Delivery Method Room Air Room Air 06/19/25 20:58 06/19/25 21:30 06/19/25 22:00 Temperature Temperatur (more content not included)... Normal [facility] L501.4021on 06-19-2025 Trop T High Sen 139 ng/L Invalid Interpretation Code <=22 [facility] Comment on above: Result Comment: Crit ical Result(s) Called ASELF at: 2144 by: LONG??Results read back by same. Performed By: #### L 501.4021, L500.2500, L100.0100 #### [facility] [address] [place], [address] Magnesiumon 06-19-2025 Magnesium [Mass/Vol] 2.0 mg/dL Normal 1.5-2.2 [facility] Comment on above: Order Comment: Comme nts: may add to ED labs Performed By: #### L 501.4021, L500.2500, L100.0100 #### [facility] [address] [place], [address] Partial Thromboplast Timeon 06-19-2025 aPTT Coag (Bld) [Time] 26.9 s Normal 24.1-36.2 [facility] Comment on above: Order Comment: Comme nts: If not done in prior 24 hours Performed By: #### L 501.4021, L500.2500, L100.0100 #### [facility] [address] [place], [address] Prothrombin Time w/INRon INR Coag (PPP) [Relative time] 1.0 {INR} Normal [facility] Comment on above: Order Comment: Comme nts: If not done in prior 24 hours Performed By: #### L 501.4021, L500.2500, L100.0100 #### [facility] [address] [place], [address] PT Coag (PPP) [Time] 12.9 s Normal 11.7-14.9 [facility] Comment on above: Order Comment: Comme nts: If not done in prior 24 hours Performed By: #### L 501.4021, L500.2500, L100.0100 #### [facility] [address] [place], [place], [address] Troponin T HS 2 HRon 025 Trop T High Sen 192 ng/L Invalid Interpretation Code <=22 [facility] Comment on above: Result Comment: Crit ical Result(s) Called at: 2311 by: GEORGINA MASTERSON TO [facility]??Results read back by same. Performed By: #### L 499.0042 #### [facility] [address] [place], [place], [address] Encounters Encounter Date Encounter Type Care Provider Facility Start: 06-20-2025 ambulatory Clem Stanley Leobardo lity:[facility] Start: 06-19-2025 ambulatory Nick Paige Facility :[facility] Start: 06-19-2025 Evaluation and manag ement of inpatient Amelia Guero Alysa Facility:[facility] Payers Date Payer Category Payer Medicare [id number] 2025 Self-pay Unknown [id number] 2.16.8 [id number] Unknown [id number] 2.16.8 [id number] Unknown [id number] 2.16.8 [id number] Unknown [id number] 2.16.8 [id number] Unknown [id number] 2.16.8 [id number] Summary Purpose Family History No Family History Records Found Advance Directives No Advanced Directives Records Found Additional Source Comments (unrecognized sect ion and content) No Status Records Found INFORMATION SOURCE (unrecogn ized section and content) DATE CREATED AUTHOR 06/21/2025 [facility] FOR RECORDS PERTAINING TO PATIENTS WHO [...] BE BASED ON THE PRIMARY CLINICAL RECORDS. [facility] [employer] [facility]. provides no warranty or guarantee of the accuracy or completeness of information in this document.
== END | disposition home or self-care (01) ==
LOC: CR 13:57
PROVIDERS: PCP Nurse Practitioner Family; Referring Provider Specialist; Visit Provider Specialist
DX: I21.4 Non-ST elevation (NSTEMI) myocardial infarction (principal); N18.31 Chronic kidney disease, stage 3a; I25.10 Atherosclerotic heart disease of native coronary artery without angina pectoris; E78.2 Mixed hyperlipidemia; I12.9 Hypertensive chronic kidney disease with stage 1 through stage 4 chronic kidney disease, or unspecified chronic kidney disease; R73.01 Impaired fasting glucose; Z95.5 Presence of coronary angioplasty implant and graft

== ENCOUNTER 2025-08-08 11:15 | Outpatient (RCR) | payer MEDICARE, SELFPAY ==
[2025-07-11 15:00] VITALS: BMI 31.3
--- NOTE | 2025-08-08 09:58 | PCM.CR.ITP ---
Exercise - Initial Assessment Visit Session #:: 8 Physician Prescribed Exercise Modalities: Treadmill, Schwinn Airdyne AD-7 and SciFit Stepper Nutrition - Initial Assessment Weight Mgt (Other Care) Height: 5 ft 7 in Weight:: 186 lb 8 oz BMI: 29.2 Psychosocial - Initial Assess Referral to Behavioral Health PS - Interventions: Yes: Attend Stress Management Classes Exercise - 30-day Assessment Visit Date of Eval: 08/08/25 Session #:: 8 Physician Prescribed Exercise Modalities: Treadmill, Schwinn Airdyne AD-7 and SciFit Stepper Frequency: 3x/week for 12 weeks [36 sessions] Intensity: 60-80% of age predicted maximum heart rate reserve Duration: 30 - 45 minutes Current METSs:: 4.3 Target Heart Rate:: 89-111 Current RPE:: 10 Maximum Excercise HR:: 101 Resting Blood Pressure: 124/72 Maximum Exercise Blood Pressure: 130/62 EKG Type: NSR to ST w/rare PAC Outcomes & Goals Goals:: Verbalizes understanding of THR, RPE & goal METS by session 6, Documents in home exercise log/reports 30 min aerobic 5 day/wk by DC, Demonstrates accurate pulse taking by DC and Other additional outcome/goals: see below Intervention & Plan Exercise Program Goals: Instruct on personal THR & RPE, Instruct on MET level & personal MET goal, Show patient to take own pulse /validate performance until accurate, Instruct on home exercise and Other additional plan/int Physical Activity Home Exercise Physical Activity - Home Exercise: Safe Exercise, Warm-up, Self-monitoring, Cool-Down, Home Exercise > 30 min Daily and Sitting Time <3 hours/daily Outcomes & Goals Outcomes/Goals: Demonstrates correct Warm-up/exercise Cool-Down (S3) if = 2.5 METs, Verbalizes symptoms of exercise intolerance by Session 3 (S3), Demonstrate safe equipment use (S3) & follows exercise prescrition (6) and Other: See below Intervention & Plan Plan/Intervention: Instruct warm-up & cool-down if exercising at > 2 METs, Instruct on symptoms of exercise intolerance & actions to take, Instruct & monitor on saf, Assess intial functional capacity & safety risk and Other See below 30-day Reassessments 30 day Reassessments:: Progressing Reassessment Notes & Comments:: Pt oriented to equipment. RPE explained to pt. Pt demonstrates understanding in his daily sessions. Exercise - 60-day Assessment Physician Prescribed Exercise Modalities: Treadmill, Schwinn Airdyne AD-7 and SciFit Stepper Exercise - 90-day Assessment Physician Prescribed Exercise Modalities: Treadmill, Schwinn Airdyne AD-7 and SciFit Stepper Exercise - Final/Discharge Physician Prescribed Exercise Modalities: Treadmill, Schwinn Airdyne AD-7 and SciFit Stepper Nutrition - 30-Day Assessment Program Goals Nutrition Program Goals Patient has diagnosis of Hyperlipidemia (ICD E78)?: Yes Visit Date of Eval: 08/08/25 Session #:: 8 (Nutrition survey score of 1.) Cholesterol/Lipids (Other Core Measures) Determine presence & major risk factors that modify LDL goal: Cigarette smoking, Hypertension or hypertensive medication, Low HDL cholesterol <40 mg/dL*, Family history of premature CHD in Male < 55 years: female <65 yearsFa and Age men > 45 years; women >/= 55 years Outcomes/Goals: Pt IDs own risk factors & lifestyle modifications by Session 10, Verbalizes symptoms of angina & response by session 3., Pt independently manages and Other Additional Outcomes/Goals: Intervention/Plan: Advocate for lipid panel cholesterol medication if applicable, Instruct on personal lipid levels & lipid goals/NCEP guidelines, Instruct on cholesterol and Other additional plan/int Diabetes (Other Core Measures) Diabetes Type: Not Applicable Weight Mgt (Other Care) Height: 5 ft 7 in Weight:: 186 lb 8 oz BMI: 29.2 Diagnosis Overweight/Obesity BMI> 30% ICD-10 E66: No Diagnosis High BMI/Morbid Obesity BMI> 35% ICD-10 Z68: No Outcomes/Goals: Pt sets, maintains & shows weight loss goal & trend during rehab and Other additional outcomes/goals Intervention/Plan: Instruct on ideal BMI & set weight loss goal w/patient, Assist pt to ID & incorporate diet changes for weight loss by S9, Refer to Structured Weight Loss program as appropriate, Encourage goal of using 250-300dcal per session for weight loss and Other additional plan/interventions 30 day Reassessments:: Progressing Reassessment Notes & Comments:: Pt has lost 5.5 lbs since 07/16. Will continue to monitor. Healthy Eating Habits Will attend diet classes:: Yes Outcomes/Goals:: Consume diet rich in vegs,fruits,whole grain/high fiber,fish,lean meat, Limit sat/trans fats,cholesterol & added salts & sugars and Other additional outcome/goals: Intervention/Plan:: Assess current eating habits and Other Additional plan/interventions 30-day Reassessments:: Progressing Reassessment Notes & Comments:: Pt is scheduled to attend nutrition classes with our medical editor. Heart healthy low sodium diet encouraged. Education Gave educational materials for:: Signs & symptoms of hypoglycemia, Signs & symptoms of hyperglycemia, Relate diabetes to coronary artery disease and Healthy eating Nutrition - 60-Day Assessment Weight Mgt (Other Care) Height: 5 ft 7 in Weight:: 186 lb 8 oz BMI: 29.2 Core - 30-Day Assessment Visit Date of Eval: 08/08/25 Session #:: 8 Medication Compliance Preventative Medication(s):: Aspirin, ALLAN inhibitor, Ticagrelor/P2Y12 inhibitor, Statin/lipid and Beta matt H/O mental health issues: depression, anxiety, or addiction?: No Doesn?t believe in the benefits of treatment?: No Believes medications are unnecessary or harmful?: No Has a concern about medication side effects?: No Expresses concern over the cost of medications?: No Outcomes/Goals: Verbalizes medications,desired effect & common side effects @ DC, Pt self-reports following medication regimen, Keeps card in wallet w/medications listed by DC and Other additional outcome/goals: Interventions/plans: Instruct on medication effects & side effects, Review medication list w/patient every two weeks, Instruct importance of taking meds as ordered & assist problem solving and Other additional Tobacco Use Tobacco Use: Non-smoker Hypertension Hypertension Diagnosis:: Hypertension ICD-10 I10 Resting Blood Pressure:: 124/72 Citizen Of [place] Heart Association Hypertension Guidelines Peak Exercise Blood Pressure:: 130/62 Outcomes/Goals: Able to verbalize/achieve optimal blood pressure <130/80, Incorporates diet changes & exercise for blood pressure control by DC and Other additional outcomes/goals Interventions/plan: Instruct on optimal blood pressure, hypertension & medications, Instruct on effects of sodium, alcohol, stress, exercise &hypertension and Other additional plan/interventions 30 day Reassessments:: Progressing Reassessment Notes & Comments:: PT's BP's are within AHA normal limits on some days. Will continue to monitor and report to pt's physician if necessary. Pt states his BP's at home are 130-140 systolic. Tobacco Cessation Referral Smoking Cessation Referral:: No Individual Education/Counseling:: No Education Schedule Given:: Yes Psychosocial - 30-Day Assess VIsit Date of Eval: 08/08/25 Session #:: 8 History of previous Mental disease:: No Psychosocial Test Tool Used:: [employer] QOL Cardiac and PHQ-9 Questionnaire phq-9 Severity See PHQ-9 Score: 0 Referral to Behavioral Health PS - Interventions: Yes: Attend Stress Management Classes Outcomes/Goals: See list Psychosocial Outcomes/Goals:: ID's personal stressors & 2 strategies to manage stress by discharge and Other Additional outcome/goals: Intervention/Plan: See List Interventions/Plan:: Assess stressors,coping strategies & signs of derpression on admission, Instruct/assist pt to develop coping & personal stress Mgt strategies, Refer to Behavioral Health if appropriate, Refer to Physician if appropriate, Instruct patient to recognize signs & symptoms of depression, Instruct patient to recog and Other additional plan/intervention 30-day Reassessments: 30 day Reassessments:: Progressing Reassessment Notes & Comments:: Pt denies any psychosocial issues at this time. Pt to attend stress management classes. Will reassess every 30 days. Psychosocial - 60-Day Assess Referral to Behavioral Health PS - Interventions: Yes: Attend Stress Management Classes Outcomes/Goals: See list Psychosocial Outcomes/Goals:: ID's personal stressors & 2 strategies to manage stress by discharge and Other Additional outcome/goals: Psychosocial - 90-Day Assess Referral to Behavioral Health PS - Interventions: Yes: Attend Stress Management Classes Psychosocial - Final Assessmen Referral to Behavioral Health PS - Interventions: Yes: Attend Stress Management Classes Nutrition - 90-Day Assessment Weight Mgt (Other Care) Height: 5 ft 7 in Weight:: 186 lb 8 oz BMI: 29.2 Nutrition - Final Assessment Weight Mgt (Other Care) Height: 5 ft 7 in Weight:: 186 lb 8 oz BMI: 29.2
[2025-08-08 10:16] VITALS: BP 124/72; BMI 29.2
== END 2025-08-08 23:59 ==
LOC: CR 11:15
PROVIDERS: PCP Nurse Practitioner Family; Referring Provider Specialist; Visit Provider Specialist
DX: Z95.5 Presence of coronary angioplasty implant and graft (principal); I21.4 Non-ST elevation (NSTEMI) myocardial infarction; I25.10 Atherosclerotic heart disease of native coronary artery without angina pectoris; N18.31 Chronic kidney disease, stage 3a; E78.2 Mixed hyperlipidemia; I12.9 Hypertensive chronic kidney disease with stage 1 through stage 4 chronic kidney disease, or unspecified chronic kidney disease; R73.01 Impaired fasting glucose
CPT/HCPCS: 93798